=== PATIENT | female | born 1950 | race Caucasian/White ===

== ENCOUNTER → 2018-09-13 09:26 | Outpatient (REF) | payer MEDICARE, SELFPAY ==
[2018-09-13 10:04] LABS: Add Manual Diff / Slide Review NO; Basophils Percent Auto 0.6 % (0-2); Eosinophils Percent Auto 1.8 % (2-4); Hemoglobin 13.6 g/dL (12.0-16.0); Lymphocytes Percent Auto 24.7 % (25-40); Mean Corpuscular HGB Conc 33.2 % (30-36); Mean Corpuscular Hemoglobin 29.1 PG (26-34); Mean Corpuscular Volume 87.5 fL (80-100); Monocytes Percent Auto 6.4 % (3-14); Neutrophils Absolute Auto 5200 /uL (3000-5900); Neutrophils Percent Auto 66.5 % (50-75); Platelet Count 314 X10^3/uL (150-400); Red Blood Cell Count 4.69 X10^6/uL (4.0-5.2); Red Cell Distribution Width 13.4 % (11.6-14.8); White Blood Cell Count 7.8 X10^3/uL (4.5-11.0)
[2018-09-13 10:24] LABS: Alanine Aminotransferase 23 IU/L (9-52); Albumin Globulin Ratio 1.2 (1.0-2.8); Alkaline Phosphatase 76 U/L (38-126); Aspartate Aminotransferase 24 IU/L (14-36); Bilirubin Total 0.6 mg/dL (0.2-1.3); Blood Urea Nitrogen 12 mg/dL (7-17); Calcium 9.2 mg/dL (8.4-10.2); Carbon Dioxide 28 mmol/L (22-32); Chloride 105 mmol/L (98-107); Estimated Glomerular Filt Rate > 60.0 mL/min (>60); Globulin 3.4 g/dL (1.7-4.1); Glucose 95 mg/dL (80-110); HEMOLYSIS 18 (0-50); Potassium 3.9 mmol/L (3.4-5.1); Sodium 143 mmol/L (137-145); Total Protein 7.4 g/dL (6.3-8.2)
[2018-09-13 10:31] LABS: Cholesterol 189 mg/dL (140-199); HDL Cholesterol 49 mg/dL (40-60); LDL Cholesterol Calculated 114 mg/dL (<100); Triglycerides 131 mg/dL (35-150)
[2018-09-13 11:33] LABS: Thyroid Stimulating Hormone 6.74 uIU/mL (0.47-4.68)
== END ==
LOC: LAB 09:26
PROVIDERS: Visit Provider Family Medicine
DX: E03.9 Hypothyroidism, unspecified (principal); G30.0 Alzheimer's disease with early onset; F02.80 Dementia in other diseases classified elsewhere, unspecified severity, without behavioral disturbance, psychotic disturbance, mood disturbance, and anxiety
CPT/HCPCS: 36415; 80053; 80061; 84443; 85025

== ENCOUNTER → 2018-11-14 18:29 | Outpatient (CLI) | payer MEDICARE, SELFPAY ==
--- NOTE | 2018-11-14 | DI.RAD.S_ITS ---
PROCEDURE: XR KNEE LT 3V INDICATIONS: left knee pain TECHNIQUE: 3 views of the knee were acquired. COMPARISON: None. FINDINGS: Bones: No fractures or dislocations. No suspicious bony lesions. 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 No significant patellar subluxation. Soft tissues: No joint effusion. No suspicious soft tissue calcifications. IMPRESSION: Moderate tricomponent osteoarthritis. No acute fracture or dislocation. Dictated by: Maxi Jean M.D. on 11/14/2018 at 18:53 Approved by: Maxi Jean M.D. on 11/14/2018 at 18:54
== END ==
PROVIDERS: PCP Nurse Practitioner Family; Visit Provider Nurse Practitioner Family
DX: M25.562 Pain in left knee (principal); M17.12 Unilateral primary osteoarthritis, left knee
CPT/HCPCS: 73562

== ENCOUNTER 2018-11-15 08:45 | Inpatient (IN) | payer MEDICARE, SELFPAY ==
[2018-11-15] VITALS (7 sets, daily range): BP systolic 97–115; BP diastolic 41–80; PULSE 63–82; RESP 15–22; TEMP 36.6–38; O2SAT 94–99; BMI 25.0
--- NOTE | 2018-11-15 09:02 | ED.WEAKNESS ---
HPI - Weakness General Chief complaint: Extremity Injury, Lower Stated complaint: Near syncope Time Seen by Provider: 11/15/18 08:51 Source: EMS Mode of arrival: EMS Limitations: physical limitation (Non verbal) History of Present Illness HPI Narrative: Gillian is a 68-year-old female who presents after being found slumped over in a wheelchair. She resides at [facility] she is nonverbal at baseline. She had an outpatient x-ray of her left knee for swelling and warmth she was scheduled for blood work today. When EMS arrived she was easily woken she is now awake and responsive. She does follow some simple commands. But really does not talk. Her left knee is noted to be swollen and warm to touch but no erythema. She is afebrile. Related Data Home Medications Medication Instructions Recorded Confirmed cholecalciferol (vitamin D3) 2,000 unit PO DAILY 11/15/18 11/15/18 [Vitamin D3] levothyroxine 112 mcg PO DAILY 11/15/18 11/15/18 melatonin 6 mg PO BEDTIME 11/15/18 11/15/18 omega 5-yld-cie-fish oil [Fish Oil] 1,000 mg PO DAILY 11/15/18 11/15/18 vitamin B complex [B 1 tab PO DAILY 11/15/18 11/15/18 Complex-Vitamin B12] Previous Rx's Medication Instructions Recorded lorazepam 1 tab PO Q8HP PRN #60 tab 09/29/17 acetaminophen 325 mg tablet 650 mg PO Q4H PRN #90 tab 09/15/18 Allergies Allergy/AdvReac Type Severity Reaction Status Date / Time Penicillins [PENICILLINS] Allergy Severe hives, Unverified 03/10/18 12:01 vomiting Sulfa (Sulfonamide Allergy Severe hives Unverified 03/10/18 12:01 Antibiotics) [SULFA (SULFONAMIDE ANTIBIOTICS)] Review of Systems Review of Systems unobtainable due to mental condition Musculoskeletal Reports as per HPI PFSH Medical History Alzheimer disease (Chronic) Hypothyroid (Chronic) Surgical History Status post arthroscopy Social History lives independently: No ([facility]) Exam Initial Vital Signs Initial Vital Signs: Vital Signs Temperature 98 F 11/15/18 08:55 Pulse Rate 63 11/15/18 08:55 Respiratory Rate 18 11/15/18 08:55 Blood Pressure 104/55 L 11/15/18 08:55 Pulse Oximetry 99 12/17/18 08:55 Const General: cooperative and frail appearing Orientation: alert and awake HENPA Head: normal to inspection and normocephalic Eyes General: appearance normal, both eyes and all related structures Neck Neck: normal visual inspection and full ROM Chest Chest: normal inspection of the chest and normal palpation of entire chest wall Resp Auscultation: clear to auscultation bilaterally, no rales, no rhonchi and no wheezes Cardio Rate: regular rate Rhythm: regular rhythm Heart Sounds: S1 normal and S2 normal GI Inspection: non-distended Palpation: soft, No guarding and No tender Skin General: no rashes or lesions noted, No jaundice and No petechiae Neuro General: alert and awake Other: Can squeeze both hands does not move legs when asked Extrem Left lower extremity: knee Details: swelling (At knee unable to straighten held in slight flexion) and warmth (No erythema); no tenderness, no abrasions and no ecchymosis Course Orders Ordered: ED Orders 11/15/18 09:25 Basic Metabolic Panel Stat C-Reactive Protein Quant Stat Complete Blood Count AUTO DIFF Stat Erythrocyte Sedimentation Rate Stat Thyroid Stimulating Hormone Stat 11/15/18 09:39 XR chest 1V Stat Blood Culture Stat Procalcitonin Stat 11/15/18 10:25 Lactate (Lactic Acid) Stat 11/15/18 11:20 Urinalysis and Microscopic Stat Urine Culture Stat Haloperidol (Haldol) 2 mg IV NOW ONE Stop: 11/15/18 14:50 Sodium Chloride (Normal Saline 0.9%) 1,000 mls @ 150 mls/hr IV BOLUS ONE Stop: 11/15/18 16:19 Last Infusion: 11/15/18 12:32 Dose: 0 mls/hr Admin: 11/15/18 10:00 Dose: 150 mls/hr Discontinued Medications Ceftriaxone Sodium/Dextrose (Rocephin) 1 gm in 50 mls @ 100 mls/hr IV NOW ONE Stop: 11/15/18 12:35 Last Infusion: 11/15/18 12:49 Dose: 0 mls/hr Admin: 11/15/18 12:14 Dose: 100 mls/hr Sodium Chloride (Normal Saline 0.9%) 1,000 mls @ 1,000 mls/hr IV BOLUS ONE Stop: 11/15/18 14:45 Vital Signs - 8 hr 11/15/18 08:55 11/15/18 12:00 11/15/18 13:00 Temperature 98 F Pulse Rate 63 67 72 Respiratory Rate 18 15 16 Blood Pressure 104/55 L Blood Pressure [Left Arm] 97/56 L 115/64 Pulse Oximetry 99 95 95 11/15/18 13:15 Temperature 98.4 F Pulse Rate 71 Respiratory Rate 22 Blood Pressure 112/80 Blood Pressure [Left Arm] Pulse Oximetry 94 MDM - Weakness Lab Data Attestation: I reviewed the patient's lab results. Result diagrams: 11/15/18 09:25 11/15/18 09:25 Lab Results 11/15/18 11/15/18 11/15/18 Range/Units 09:25 09:25 09:25 WBC 17.6 H (4.5-11.0) X10^3/uL RBC 4.80 (4.0-5.2) X10^6/uL Hgb 13.9 (12.0-16.0) g/dL Hct 41.7 (36-46) % MCV 86.9 (80-100) fL MCH 29.0 (26-34) PG MCHC 33.4 (30-36) % RDW 13.2 (11.6-14.8) % Plt Count 312 (150-400) X10^3/uL Neut % (Auto) 87.1 H (50-75) % Lymph % (Auto) 4.6 L (25-40) % [place] % (Auto) 8.1 (3-14) % Eos % (Auto) 0.0 L (2-4) % Baso % (Auto) 0.2 (0-2) % Neut # (Auto) 84078 H (1783-7600) /uL ESR 43 H (0-20) MM/HR Sodium 139 (137-145) mmol/L Potassium 5.3 H (3.4-5.1) mmol/L Chloride 104 (98-107) mmol/L Carbon Dioxide 21 L (22-32) mmol/L BUN 12 (7-17) mg/dL Creatinine 0.40 L (0.52-1.04) mg/dL Estimated GFR > 60.0 (>60) mL/min BUN/Creatinine Ratio 30.0 H (6-22) Glucose 153 H (80-110) mg/dL Lactate (0.7-2.1) mmol/L Calcium 9.4 (8.4-10.2) mg/dL C-Reactive Protein 5.3 H (<1.0) mg/dL Procalcitonin (<0.5) ng/mL TSH 2.66 (0.47-4.68) uIU/mL Urine Color Urine Appearance Urine pH (4.5-8.0) Ur Specific [place] (1.000-1.035) Urine Protein (Negative) Urine Glucose (UA) (Normal) g/dL Urine Ketones (NEGATIVE) Urine Occult Blood (Negative) Urine Nitrate (Negative) Urine Bilirubin (NEGATIVE) Urine Urobilinogen (0.2) E.U./dL Ur Leukocyte Esterase (NEGATIVE) Urine RBC (0-5/HPF) Urine WBC (0-5/HPF) Urine Bacteria (None) Ur Culture Indicated? Micro UA Comment 11/15/18 11/15/18 11/15/18 Range/Units 09:39 10:25 11:20 WBC (4.5-11.0) X10^3/uL RBC (4.0-5.2) X10^6/uL Hgb (12.0-16.0) g/dL Hct (36-46) % MCV (80-100) fL MCH (26-34) PG MCHC (30-36) % RDW (11.6-14.8) % Plt Count (150-400) X10^3/uL Neut % (Auto) (50-75) % Lymph % (Auto) (25-40) % [place] % (Auto) (3-14) % Eos % (Auto) (2-4) % Baso % (Auto) (0-2) % Neut # (Auto) (4555-2863) /uL ESR (0-20) MM/HR Sodium (137-145) mmol/L Potassium (3.4-5.1) mmol/L Chloride (98-107) mmol/L Carbon Dioxide (22-32) mmol/L BUN (7-17) mg/dL Creatinine (0.52-1.04) mg/dL Estimated GFR (>60) mL/min BUN/Creatinine Ratio (6-22) Glucose (80-110) mg/dL Lactate 1.8 (0.7-2.1) mmol/L Calcium (8.4-10.2) mg/dL C-Reactive Protein (<1.0) mg/dL Procalcitonin 0.05 (<0.5) ng/mL TSH (0.47-4.68) uIU/mL Urine Color Yellow Urine Appearance Clear Urine pH 5.5 (4.5-8.0) Ur Specific [place] >=1.030 H (1.000-1.035) Urine Protein Negative (Negative) Urine Glucose (UA) Negative (Normal) g/dL Urine Ketones Negative (NEGATIVE) Urine Occult Blood 2+ H (Negative) Urine Nitrate Positive H (Negative) Urine Bilirubin Negative (NEGATIVE) Urine Urobilinogen 0.2 (0.2) E.U./dL Ur Leukocyte Esterase Trace H (NEGATIVE) Urine RBC 1-5/hpf (0-5/HPF) Urine WBC 5-10/hpf H (0-5/HPF) Urine Bacteria Many (>30) H (None) Ur Culture Indicated? Specimen cultured Micro UA Comment Not Reportable Imaging Data Left knee x-ray: Radiologist's impression: Patient: Gillian Law MR#: [id number] : 1950 Acct:[id number] Age/Sex: 68 / F Date of Service: 11/14/18 Loc: Accession Number: [id number] Procedure: XR knee LT 3V Ordering Provider: Shelia Petersen PROCEDURE: XR KNEE LT 3V INDICATIONS: left knee pain TECHNIQUE: 3 views of the knee were acquired. COMPARISON: None. FINDINGS: Bones: No fractures or dislocations. No suspicious bony lesions. 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 No significant patellar subluxation. Soft tissues: No joint effusion. No suspicious soft tissue calcifications. IMPRESSION: Moderate tricomponent osteoarthritis. No acute fracture or dislocation. Dictated by: Maxi Jean M.D. on 11/14/2018 at 18:53 Chest x-ray: Radiologist's impression: PROCEDURE: XR CHEST 1V INDICATIONS: confusion high wbc TECHNIQUE: One view of the chest was acquired. COMPARISON: None. FINDINGS: Surgical changes and devices: None. Lungs and pleura: No pleural effusions or pneumothorax. Lungs are clear. Mediastinum: Mediastinal contours appear normal. Heart size is normal. Bones and chest wall: No suspicious bony lesions. Overlying soft tissues appear unremarkable. IMPRESSION: No acute process. Dictated by: Baudilio Porras M.D. on 11/15/2018 at 9:59 MDM Narrative Medical decision making narrative: Patient actually starts moving her legs. Her knee is not erythematous it is mildly edematous. I do not think I can get fluid off with an arthrocentesis. I do not suspect septic joint. Urine is positive for nitrates and leukocytes. She is incontinent of urine her urine smells. I suspect her leukocytosis decreased mental status is more from UTI. She is empirically given 1 dose of Rocephin. The not tachycardic or hypotensive she did receive 1 L of IV fluids. Dr. Turner has been updated on patient's symptoms test results agrees with admission. Discharge Plan Departure Patient Disposition: Admitted As Inpatient Clinical Impression: UTI (urinary tract infection) Discharge Date/Time: 11/15/18 13:14 Interventions: ED Discharge Assessment Last Done: 11/15/18 13:00 Admit Date/Time: 11/15/18 12:24 Admit Provider: Angie Turner
--- NOTE | 2018-11-15 09:07 | ED_ITS ---
HPI - Weakness General Chief complaint: Extremity Injury, Lower Stated complaint: Near syncope Time Seen by Provider: 11/15/18 08:51 Source: EMS Mode of arrival: EMS Limitations: physical limitation (Non verbal) History of Present Illness HPI Narrative: Gillian is a 68-year-old female who presents after being found slumped over in a wheelchair. She resides at [facility] she is nonverbal at baseline. She had an outpatient x-ray of her left knee for swelling and warmth she was scheduled for blood work today. When EMS arrived she was easily woken she is now awake and responsive. She does follow some simple commands. But really does not talk. Her left knee is noted to be swollen and warm to touch but no erythema. She is afebrile. Related Data Home Medications Medication Instructions Recorded Confirmed cholecalciferol (vitamin D3) 2,000 unit PO DAILY 11/15/18 11/15/18 [Vitamin D3] levothyroxine 112 mcg PO DAILY 11/15/18 11/15/18 melatonin 6 mg PO BEDTIME 11/15/18 11/15/18 omega 4-uhz-slc-fish oil [Fish Oil] 1,000 mg PO DAILY 11/15/18 11/15/18 vitamin B complex [B 1 tab PO DAILY 11/15/18 11/15/18 Complex-Vitamin B12] Previous Rx's Medication Instructions Recorded lorazepam 1 tab PO Q8HP PRN #60 tab 09/29/17 acetaminophen 325 mg tablet 650 mg PO Q4H PRN #90 tab 09/15/18 Allergies Allergy/AdvReac Type Severity Reaction Status Date / Time Penicillins [PENICILLINS] Allergy Severe hives, Unverified 03/10/18 12:01 vomiting Sulfa (Sulfonamide Allergy Severe hives Unverified 03/10/18 12:01 Antibiotics) [SULFA (SULFONAMIDE ANTIBIOTICS)] Review of Systems Review of Systems unobtainable due to mental condition Musculoskeletal Reports as per HPI PFSH Medical History Alzheimer disease (Chronic) Hypothyroid (Chronic) Surgical History Status post arthroscopy Social History lives independently: No ([facility]) Exam Initial Vital Signs Initial Vital Signs: Vital Signs Temperature 98 F 11/15/18 08:55 Pulse Rate 63 11/15/18 08:55 Respiratory Rate 18 11/15/18 08:55 Blood Pressure 104/55 L 11/15/18 08:55 Pulse Oximetry 99 12/17/18 08:55 Const General: cooperative and frail appearing Orientation: alert and awake HENNV Head: normal to inspection and normocephalic Eyes General: appearance normal, both eyes and all related structures Neck Neck: normal visual inspection and full ROM Chest Chest: normal inspection of the chest and normal palpation of entire chest wall Resp Auscultation: clear to auscultation bilaterally, no rales, no rhonchi and no wheezes Cardio Rate: regular rate Rhythm: regular rhythm Heart Sounds: S1 normal and S2 normal GI Inspection: non-distended Palpation: soft, No guarding and No tender Skin General: no rashes or lesions noted, No jaundice and No petechiae Neuro General: alert and awake Other: Can squeeze both hands does not move legs when asked Extrem Left lower extremity: knee Details: swelling (At knee unable to straighten held in slight flexion) and warmth (No erythema); no tenderness, no abrasions and no ecchymosis Course Orders Ordered: ED Orders 11/15/18 09:25 Basic Metabolic Panel Stat C-Reactive Protein Quant Stat Complete Blood Count AUTO DIFF Stat Erythrocyte Sedimentation Rate Stat Thyroid Stimulating Hormone Stat 11/15/18 09:39 XR chest 1V Stat Blood Culture Stat Procalcitonin Stat 11/15/18 10:25 Lactate (Lactic Acid) Stat 11/15/18 11:20 Urinalysis and Microscopic Stat Urine Culture Stat Haloperidol (Haldol) 2 mg IV NOW ONE Stop: 11/15/18 14:50 Sodium Chloride (Normal Saline 0.9%) 1,000 mls @ 150 mls/hr IV BOLUS ONE Stop: 11/15/18 16:19 Last Infusion: 11/15/18 12:32 Dose: 0 mls/hr Admin: 11/15/18 10:00 Dose: 150 mls/hr Discontinued Medications Ceftriaxone Sodium/Dextrose (Rocephin) 1 gm in 50 mls @ 100 mls/hr IV NOW ONE Stop: 11/15/18 12:35 Last Infusion: 11/15/18 12:49 Dose: 0 mls/hr Admin: 11/15/18 12:14 Dose: 100 mls/hr Sodium Chloride (Normal Saline 0.9%) 1,000 mls @ 1,000 mls/hr IV BOLUS ONE Stop: 11/15/18 14:45 Vital Signs - 8 hr 11/15/18 08:55 11/15/18 12:00 11/15/18 13:00 Temperature 98 F Pulse Rate 63 67 72 Respiratory Rate 18 15 16 Blood Pressure 104/55 L Blood Pressure [Left Arm] 97/56 L 115/64 Pulse Oximetry 99 95 95 11/15/18 13:15 Temperature 98.4 F Pulse Rate 71 Respiratory Rate 22 Blood Pressure 112/80 Blood Pressure [Left Arm] Pulse Oximetry 94 MDM - Weakness Lab Data Attestation: I reviewed the patient's lab results. Result diagrams: 11/15/18 09:25 11/15/18 09:25 Lab Results 11/15/18 11/15/18 11/15/18 Range/Units 09:25 09:25 09:25 WBC 17.6 H (4.5-11.0) X10^3/uL RBC 4.80 (4.0-5.2) X10^6/uL Hgb 13.9 (12.0-16.0) g/dL Hct 41.7 (36-46) % MCV 86.9 (80-100) fL MCH 29.0 (26-34) PG MCHC 33.4 (30-36) % RDW 13.2 (11.6-14.8) % Plt Count 312 (150-400) X10^3/uL Neut % (Auto) 87.1 H (50-75) % Lymph % (Auto) 4.6 L (25-40) % [place] % (Auto) 8.1 (3-14) % Eos % (Auto) 0.0 L (2-4) % Baso % (Auto) 0.2 (0-2) % Neut # (Auto) 70946 H (9351-7746) /uL ESR 43 H (0-20) MM/HR Sodium 139 (137-145) mmol/L Potassium 5.3 H (3.4-5.1) mmol/L Chloride 104 (98-107) mmol/L Carbon Dioxide 21 L (22-32) mmol/L BUN 12 (7-17) mg/dL Creatinine 0.40 L (0.52-1.04) mg/dL Estimated GFR > 60.0 (>60) mL/min BUN/Creatinine Ratio 30.0 H (6-22) Glucose 153 H (80-110) mg/dL Lactate (0.7-2.1) mmol/L Calcium 9.4 (8.4-10.2) mg/dL C-Reactive Protein 5.3 H (<1.0) mg/dL Procalcitonin (<0.5) ng/mL TSH 2.66 (0.47-4.68) uIU/mL Urine Color Urine Appearance Urine pH (4.5-8.0) Ur Specific [place] (1.000-1.035) Urine Protein (Negative) Urine Glucose (UA) (Normal) g/dL Urine Ketones (NEGATIVE) Urine Occult Blood (Negative) Urine Nitrate (Negative) Urine Bilirubin (NEGATIVE) Urine Urobilinogen (0.2) E.U./dL Ur Leukocyte Esterase (NEGATIVE) Urine RBC (0-5/HPF) Urine WBC (0-5/HPF) Urine Bacteria (None) Ur Culture Indicated? Micro UA Comment 11/15/18 11/15/18 11/15/18 Range/Units 09:39 10:25 11:20 WBC (4.5-11.0) X10^3/uL RBC (4.0-5.2) X10^6/uL Hgb (12.0-16.0) g/dL Hct (36-46) % MCV (80-100) fL MCH (26-34) PG MCHC (30-36) % RDW (11.6-14.8) % Plt Count (150-400) X10^3/uL Neut % (Auto) (50-75) % Lymph % (Auto) (25-40) % [place] % (Auto) (3-14) % Eos % (Auto) (2-4) % Baso % (Auto) (0-2) % Neut # (Auto) (1612-7074) /uL ESR (0-20) MM/HR Sodium (137-145) mmol/L Potassium (3.4-5.1) mmol/L Chloride (98-107) mmol/L Carbon Dioxide (22-32) mmol/L BUN (7-17) mg/dL Creatinine (0.52-1.04) mg/dL Estimated GFR (>60) mL/min BUN/Creatinine Ratio (6-22) Glucose (80-110) mg/dL Lactate 1.8 (0.7-2.1) mmol/L Calcium (8.4-10.2) mg/dL C-Reactive Protein (<1.0) mg/dL Procalcitonin 0.05 (<0.5) ng/mL TSH (0.47-4.68) uIU/mL Urine Color Yellow Urine Appearance Clear Urine pH 5.5 (4.5-8.0) Ur Specific [place] >=1.030 H (1.000-1.035) Urine Protein Negative (Negative) Urine Glucose (UA) Negative (Normal) g/dL Urine Ketones Negative (NEGATIVE) Urine Occult Blood 2+ H (Negative) Urine Nitrate Positive H (Negative) Urine Bilirubin Negative (NEGATIVE) Urine Urobilinogen 0.2 (0.2) E.U./dL Ur Leukocyte Esterase Trace H (NEGATIVE) Urine RBC 1-5/hpf (0-5/HPF) Urine WBC 5-10/hpf H (0-5/HPF) Urine Bacteria Many (>30) H (None) Ur Culture Indicated? Specimen cultured Micro UA Comment Not Reportable Imaging Data Left knee x-ray: Radiologist's impression: Patient: Gillian Law MR#: [id number] : 1950 Acct:[id number] Age/Sex: 68 / F Date of Service: 11/14/18 Loc: Accession Number: [id number] Procedure: XR knee LT 3V Ordering Provider: Shelia Petersen PROCEDURE: XR KNEE LT 3V INDICATIONS: left knee pain TECHNIQUE: 3 views of the knee were acquired. COMPARISON: None. FINDINGS: Bones: No fractures or dislocations. No suspicious bony lesions. 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 No significant patellar subluxation. Soft tissues: No joint effusion. No suspicious soft tissue calcifications. IMPRESSION: Moderate tricomponent osteoarthritis. No acute fracture or dislocation. Dictated by: Maxi Jean M.D. on 11/14/2018 at 18:53 Chest x-ray: Radiologist's impression: PROCEDURE: XR CHEST 1V INDICATIONS: confusion high wbc TECHNIQUE: One view of the chest was acquired. COMPARISON: None. FINDINGS: Surgical changes and devices: None. Lungs and pleura: No pleural effusions or pneumothorax. Lungs are clear. Mediastinum: Mediastinal contours appear normal. Heart size is normal. Bones and chest wall: No suspicious bony lesions. Overlying soft tissues appear unremarkable. IMPRESSION: No acute process. Dictated by: Baudilio Porras M.D. on 11/15/2018 at 9:59 MDM Narrative Medical decision making narrative: Patient actually starts moving her legs. Her knee is not erythematous it is mildly edematous. I do not think I can get fluid off with an arthrocentesis. I do not suspect septic joint. Urine is positive for nitrates and leukocytes. She is incontinent of urine her urine smells. I suspect her leukocytosis decreased mental status is more from UTI. She is empirically given 1 dose of Rocephin. The not tachycardic or hypotensive she did receive 1 L of IV fluids. Dr. Turner has been updated on patient's symptoms test results agrees with admission. Discharge Plan Departure Patient Disposition: Admitted As Inpatient Clinical Impression: UTI (urinary tract infection) Discharge Date/Time: 11/15/18 13:14 Interventions: ED Discharge Assessment Last Done: 11/15/18 13:00 Admit Date/Time: 11/15/18 12:24 Admit Provider: Angie Turner
[2018-11-15 09:36] LABS: Add Manual Diff / Slide Review NO; Basophils Percent Auto 0.2 % (0-2); Hematocrit 41.7 % (36-46); Hemoglobin 13.9 g/dL (12.0-16.0); Lymphocytes Percent Auto 4.6 % (25-40); Mean Corpuscular HGB Conc 33.4 % (30-36); Mean Corpuscular Volume 86.9 fL (80-100); Monocytes Percent Auto 8.1 % (3-14); Neutrophils Absolute Auto 15300 /uL (1500-7000); Neutrophils Percent Auto 87.1 % (50-75); Platelet Count 312 X10^3/uL (150-400); Red Cell Distribution Width 13.2 % (11.6-14.8); White Blood Cell Count 17.6 X10^3/uL (4.5-11.0)
--- NOTE | 2018-11-15 09:39 | DI.RAD.S_ITS ---
PROCEDURE: XR CHEST 1V INDICATIONS: confusion high wbc TECHNIQUE: One view of the chest was acquired. COMPARISON: None. FINDINGS: Surgical changes and devices: None. Lungs and pleura: No pleural effusions or pneumothorax. Lungs are clear. Mediastinum: Mediastinal contours appear normal. Heart size is normal. Bones and chest wall: No suspicious bony lesions. Overlying soft tissues appear unremarkable. IMPRESSION: No acute process. Dictated by: Baudilio Porras M.D. on 11/15/2018 at 9:59 Approved by: Baudilio Porras M.D. on 11/15/2018 at 9:59
[2018-11-15 09:44] LABS: Blood Urea Nitrogen 12 mg/dL (7-17); Calcium 9.4 mg/dL (8.4-10.2); Carbon Dioxide 21 mmol/L (22-32); Chloride 104 mmol/L (98-107); Estimated Glomerular Filt Rate > 60.0 mL/min (>60); Glucose 153 mg/dL (80-110); Potassium 5.3 mmol/L (3.4-5.1); Sodium 139 mmol/L (137-145)
[2018-11-15 09:48] LABS: HEMOLYSIS 202 (0-50)
[2018-11-15] MEDS: SODIUM CHLORIDE 0.9% 1,000 ML 150 ML IV (10:00)
[2018-11-15 10:31] LABS: Thyroid Stimulating Hormone 2.66 uIU/mL (0.47-4.68)
[2018-11-15 10:48] LABS: C-Reactive Protein Quant 5.3 mg/dL (<1.0)
[2018-11-15 10:56] LABS: Lactate (Lactic Acid) 1.8 mmol/L (0.7-2.1)
[2018-11-15 11:07] LABS: Erythrocyte Sedimentation Rate 43 MM/HR (0-20)
[2018-11-15 11:16] LABS: Procalcitonin 0.05 ng/mL (<0.5)
--- NOTE | 2018-11-15 11:51 | PC.NURSE ---
patient was brought in by EMS from [facility]. left knee is hot to touch and swollen. provider aware and no new orders at this time.
[2018-11-15 11:56] LABS: Appearance Urine UA CLEAR; Bilirubin Urine UA NEGATIVE (NEGATIVE); Color Urine UA YELLOW; Glucose Urine UA NEGATIVE (Normal); Ketones Urine UA NEGATIVE (NEGATIVE); Leukocyte Esterase Urine UA TRACE (NEGATIVE); Nitrite Urine UA POSITIVE (Negative); Occult Blood Urine UA 2+ (Negative); Protein Urine UA NEGATIVE (Negative); Specific Gravity Urine UA >=1.030 (1.000-1.035); Urobilinogen Urine UA 0.2 E.U./dL (0.2); pH Urine UA 5.5 (4.5-8.0)
[2018-11-15 12:05] LABS: RBC Urine 1-5/HPF (0-5/HPF); WBC Urine 5-10/HPF (0-5/HPF)
[2018-11-15 12:06] LABS: Bacteria Urine Many (>30); Culture Indicated Urine Specimen Cultured
[2018-11-15] MEDS: CEFTRIAXONE 1 GM/50 ML FROZ.PIGGY IV (12:14)
[2018-11-15] MEDS: SODIUM CHLORIDE 0.9% 1,000 ML 1000 ML IV (13:00)
--- NOTE | 2018-11-15 13:12 | PC.NURSE ---
patient is non verbal and was a little combative when trying to straight cath but urine obtained. provider aware and no new orders at this time.
--- NOTE | 2018-11-15 13:30 | PC.ADMIT ---
Addendum entered by Savage Berrios R.N. 11/15/18 15:29: Spoke with MD regarding inability to obtain second set of blood cultures r/t pt combative with lab draw attempts. VORB for haldol IV and then attempt to get blood cultures. Awaiting med from pharmacy. Bedside report given. [facility] The patient,Gillian Law,68 y/o, was given written information regarding hospital policies, unit procedures and contact persons. Patient's smoking status: . Vital Signs - 8 hr 11/15/18 08:55 11/15/18 12:00 11/15/18 13:00 Temperature 98 F Pulse Rate 63 67 72 Respiratory Rate 18 15 16 Blood Pressure 104/55 L Blood Pressure [Left Arm] 97/56 L 115/64 Pulse Oximetry 99 95 95 Rec'd pt from ED via stretcher at 1315. Pt is awake and alert. Nonverbal with a few incomprehensible sounds. Pt is nervous and tremors to BUE noted that calm with careful explanation of care. NS bolus is infusing at this time. VSS. Afebrile. Bed alarm in use. Call light in reach. Curtains open for direct visualization.
[2018-11-15] MEDS: HALOPERIDOL 5 MG/ML VIAL 2 MG IV (15:38)
--- NOTE | 2018-11-15 16:01 | P.HP_ITS ---
History of Present Illness Date Patient Seen: 11/15/18 Chief complaint: Near syncope Narrative: The patient is a 68y/o female with a history of dementia who by report is non verbal at baseline. She was evaluated in the Emergency Department a few days ago for left knee pain. Xrays of the knee were negative. The patient was found slumped over today by medics. She was easily arousable and brought into the emergency department for evaluation. As the patient is non verbal she is unable to give any history. She was combative and recieved haldol and is not uncooperative with exam. After evaluation in the ED she was found to have an elevated WBC, positive urine, and admitted for furthe evaluation. Patient History Medical History Alzheimer disease (Chronic) Hypothyroid (Chronic) Surgical History Status post arthroscopy Family & Social History Social History: lives independently No: Lyssa Meds Home Medications Medication Instructions Recorded Confirmed Type lorazepam 1 tab PO Q8HP PRN #60 tab 09/29/17 11/15/18 Rx acetaminophen 325 mg tablet 650 mg PO Q4H PRN #90 tab 09/15/18 11/15/18 Rx cholecalciferol (vitamin D3) 2,000 unit PO DAILY 11/15/18 11/15/18 History [Vitamin D3] levothyroxine 112 mcg PO DAILY 11/15/18 11/15/18 History melatonin 6 mg PO BEDTIME 11/15/18 11/15/18 History omega [id number] oil [Fish Oil] 1,000 mg PO DAILY 11/15/18 11/15/18 History vitamin B complex [B 1 tab PO DAILY 11/15/18 11/15/18 History Complex-Vitamin B12] Allergies Allergy/AdvReac Type Severity Reaction Status Date / Time Penicillins [PENICILLINS] Allergy Severe hives, Unverified 03/10/18 12:01 vomiting Sulfa (Sulfonamide Allergy Severe hives Unverified 03/10/18 12:01 Antibiotics) [SULFA (SULFONAMIDE ANTIBIOTICS)] Review of Systems Review of Systems Unable to obtain as the patient is non verbal Exam Vital Signs (past 8 hours): - 11/15/18 08:55 11/15/18 12:00 11/15/18 13:00 Temperature 98 F Pulse Rate 63 67 72 Respiratory Rate 18 15 16 Blood Pressure 104/55 L Blood Pressure [Left Arm] 97/56 L 115/64 Pulse Oximetry 99 95 95 11/15/18 13:15 Temperature 98.4 F Pulse Rate 71 Respiratory Rate 22 Blood Pressure 112/80 Blood Pressure [Left Arm] Pulse Oximetry 94 Oxygen Delivery Method Room Air Narrative Exam Narrative: Ill appearing dishelved female non verbal and non cooperative HEENT: NC/AT, oropharynx dry mucus membranes Lungs: clear to auscultation, but decreased breath sounds CV: RRR nl Sl S2 Abd: soft/ non tender/ non distended Ext: no edema Skin: warm no lesions, diaper in place Neuro: patient is uncooperative Objective Labs Result Diagrams: 11/15/18 09:25 11/15/18 09:25 Labs: Laboratory Results - last 24 hr 11/15/18 11/15/18 11/15/18 09:25 09:25 09:25 WBC 17.6 H RBC 4.80 Hgb 13.9 Hct 41.7 MCV 86.9 MCH 29.0 MCHC 33.4 RDW 13.2 Plt Count 312 Neut % (Auto) 87.1 H Lymph % (Auto) 4.6 L [place] % (Auto) 8.1 Eos % (Auto) 0.0 L Baso % (Auto) 0.2 Neut # (Auto) 42397 H ESR 43 H Sodium 139 Potassium 5.3 H Chloride 104 Carbon Dioxide 21 L BUN 12 Creatinine 0.40 L Estimated GFR > 60.0 BUN/Creatinine Ratio 30.0 H Glucose 153 H Lactate Calcium 9.4 C-Reactive Protein 5.3 H Procalcitonin TSH 2.66 Urine Color Urine Appearance Urine pH Ur Specific [place] Urine Protein Urine Glucose (UA) Urine Ketones Urine Occult Blood Urine Nitrate Urine Bilirubin Urine Urobilinogen Ur Leukocyte Esterase Urine RBC Urine WBC Urine Bacteria Ur Culture Indicated? Micro UA Comment 11/15/18 11/15/18 11/15/18 09:39 10:25 11:20 WBC RBC Hgb Hct MCV MCH MCHC RDW Plt Count Neut % (Auto) Lymph % (Auto) [place] % (Auto) Eos % (Auto) Baso % (Auto) Neut # (Auto) ESR Sodium Potassium Chloride Carbon Dioxide BUN Creatinine Estimated GFR BUN/Creatinine Ratio Glucose Lactate 1.8 Calcium C-Reactive Protein Procalcitonin 0.05 TSH Urine Color Yellow Urine Appearance Clear Urine pH 5.5 Ur Specific [place] >=1.030 H Urine Protein Negative Urine Glucose (UA) Negative Urine Ketones Negative Urine Occult Blood 2+ H Urine Nitrate Positive H Urine Bilirubin Negative Urine Urobilinogen 0.2 Ur Leukocyte Esterase Trace H Urine RBC 1-5/hpf Urine WBC 5-10/hpf H Urine Bacteria Many (>30) H Ur Culture Indicated? Specimen cultured Micro UA Comment Not Reportable Assessment & Plan (1) Sepsis: Problem details: Continue IV hydration and antibiotics Current visit: Yes Status: Acute (2) UTI (urinary tract infection): Problem details: Await cultures, continue ceftriaxone for now Qualifiers: Encounter type: Hematuria presence: with hematuria Indwelling urinary catheter type: Urinary tract infection type: acute cystitis Qualified Code(s): N30.01 - Acute cystitis with hematuria Current visit: Yes Status: Acute (3) Hypothyroidism: Problem details: Resume thyroid medication when taking adequate PO Current visit: No Status: None (4) 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
[2018-11-15] MEDS: DEXTROSE 5%-0.45% NS 1,000 ML 100 ML IV (16:43)
[2018-11-15] MEDS: HYDROMORPHONE 0.5 MG INJ IV (17:10)
[2018-11-15] MEDS: SENNOSIDES 8.6 MG TABLET 17.2 MG PO (17:30)
[2018-11-15] MEDS: ACETAMINOPHEN 325 MG TABLET 650 MG PO (17:30)
[2018-11-15] MEDS: DOCUSATE 100 MG CAPSULE PO (17:30)
[2018-11-15 17:48] LABS: Add Manual Diff / Slide Review NO; Basophils Percent Auto 0.4 % (0-2); Hematocrit 37.6 % (36-46); Hemoglobin 12.3 g/dL (12.0-16.0); Lymphocytes Percent Auto 8.1 % (25-40); Mean Corpuscular HGB Conc 32.8 % (30-36); Mean Corpuscular Hemoglobin 28.7 PG (26-34); Mean Corpuscular Volume 87.3 fL (80-100); Monocytes Percent Auto 10.4 % (3-14); Neutrophils Absolute Auto 12000 /uL (1500-7000); Neutrophils Percent Auto 81.1 % (50-75); Platelet Count 273 X10^3/uL (150-400); Red Blood Cell Count 4.31 X10^6/uL (4.0-5.2); Red Cell Distribution Width 13.2 % (11.6-14.8); White Blood Cell Count 14.8 X10^3/uL (4.5-11.0)
[2018-11-15 17:51] LABS: Blood Urea Nitrogen 9 mg/dL (7-17); Calcium 8.7 mg/dL (8.4-10.2); Carbon Dioxide 23 mmol/L (22-32); Chloride 109 mmol/L (98-107); Estimated Glomerular Filt Rate > 60.0 mL/min (>60); Glucose 132 mg/dL (80-110); HEMOLYSIS < 15 (0-50); Potassium 3.5 mmol/L (3.4-5.1); Sodium 141 mmol/L (137-145)
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
[2018-11-16] VITALS (11 sets, daily range): BP systolic 91–129; BP diastolic 48–95; PULSE 63–91; RESP 14–19; TEMP 36.4–38.1; O2SAT 94–97
--- NOTE | 2018-11-16 | DI.RAD.S_ITS ---
PROCEDURE: XR HIP W PEL IF DONE LT 2V INDICATIONS: left hip pain TECHNIQUE: 2 views of the hip were acquired. COMPARISON: None. FINDINGS: Bones: No fractures or dislocations. No suspicious bony lesions. The visualized pelvic ring appears intact. Bilateral mild to joint degeneration. Small chronic bilateral os acetabula. Diffuse discogenic changes seen in the visualized lower lumbar spine. Soft tissues: No suspicious soft tissue calcifications or masses. IMPRESSION: Mild bilateral hip joint degeneration. Lower lumbar degenerative disc disease. Dictated by: Savage Yusfu M.D. on 11/16/2018 at 12:31 Approved by: Savage Yusuf M.D. on 11/16/2018 at 12:32
[2018-11-16] MEDS: HALOPERIDOL 5 MG/ML VIAL 2 MG IV (00:31)
[2018-11-16] MEDS: DEXTROSE 5%-0.45% NS 1,000 ML 100 ML IV (00:33)
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
[2018-11-16] MEDS: DOCUSATE 100 MG CAPSULE PO ×2 (09:28→19:08)
[2018-11-16] MEDS: ENOXAPARIN 40 MG/0.4 ML SYRINGE SUBCUT (09:28)
--- NOTE | 2018-11-16 09:51 | PT.IIE ---
Current Diagnoses Sepsis, unspecified organism (11/15/18) Hypothyroidism, unspecified (11/15/18) Dementia in other diseases classified elsewhere with behavioral disturbance (11/15/18) Alzheimer's disease with early onset (11/15/18) Encephalopathy, unspecified (11/15/18) Pain in left hip (11/15/18) Acute cystitis with hematuria (11/15/18) Surgical History (Last Reviewed 11/15/18 @ 15:59 by Angie Turner MD) Status post arthroscopy Medical History (Last Updated 11/15/18 @ 16:41 by Marilu Sandhu RN) TBI (traumatic brain injury) (Acute) Alzheimer disease (Chronic) Hypothyroid (Chronic) Physical Therapy Inpatient Evaluation/Re-Eval M1 PT/OT-IP Prior Functional Status Start: 11/16/18 13:14 Freq: NEEDED Status: Active Protocol: Document 11/16/18 09:51 AB (Rec: 11/16/18 13:39 AB [id number]) Medical Review Prior Functional Status Medical History Reviewed Yes Communication pt has dysphasia Mobility and Gait per [facility]: pt is independent with ambulation without AD but requires assistance with ADLs due to decrease cognition Activities of Daily Living and IADL's requires assistance Social History Household Members caregiver Living Arrangements Assisted Living Home Environment High Toilet Walk in Shower Home Equipment Grab Bars Near Toilet Grab Bars In Shower M2 PT-IP Current Condition Start: 11/16/18 13:14 Freq: NEEDED Status: Active Protocol: Document 11/16/18 09:51 AB (Rec: 11/16/18 13:39 AB [id number]) Physical Therapy Current Condition Current Condition Evaluation Date 11/16/18 Treatment Diagnosis UTI; difficulty in walking Onset Date 11/15/18 Precautions Other Precautions falls M3 PT-IP Subjective Start: 11/16/18 13:14 Freq: NEEDED Status: Active Protocol: Document 11/16/18 09:51 AB (Rec: 11/16/18 13:39 AB [id number]) Subjective Physical Therapy Visit Type Type Initial Evaluation Visit Start Time 09:51 Visit Stop Time 10:40 Total Visit Minutes 49 Number of BAR POINTER Visits 0 Therapy Pain Assessment Pain When Pain Assessed During Mobility Location Left Leg Scale Used unable to stated pain scale Description With Movement Pain Behaviors Facial Grimacing Holding Area Wincing M4 PT-IP Mobility and Gait Start: 11/16/18 13:14 Freq: NEEDED Status: Active Protocol: Document 11/16/18 09:51 AB (Rec: 11/16/18 13:39 AB [id number]) PT-Bed Mobility Assessment Supine to Sit Supine to Sit Moderate Assistance 1 Person Assistance Head of Bed Elevated Bedrails PT-Transfer Assessment Sit to and From Stand Sit to and from Stand Maximum Assistance 2 Person Assistance Use of Upper Extremities Equipment Transfer Assistive Device Gait Belt Front Wheeled Walker Orthotic/Prosthetic Devices or Brace: No Transfers Transfer Destination Chair Transfer Technique Stand Step Pivot Transfer Ability Level of Assist Maximum Assistance 2 Person Assistance Use of Upper Extremities Comments Mobility Comments pt required max A cues with all tasks and requires constant cues and redirection. also requires increaes time to complete tasks. pt with difficulty with weight shifting on LE during transfers and requires assistance to be able to move LE. pt used FWW during transfers. Gait Assessment Gait Gait Assistance Required: Maximum Assistance 2 Person Assist Able to Maintain Weight Bearing Status Yes During Gait Assistive Devices Assistive Device Gait Belt Front Wheeled Walker Gait Deviations General Gait Pattern Decreased Stride Length Decreased Feet Clearance Factors Limiting Gait Function Factors Limiting Gait Function Decreased Activity Tolerance Decreased Strength Difficulty Following Directions Incoordination Limited Range of Motion Pain Poor Balance Poor Safety Awareness Comments Gait Comments able to take ~ 3 steps during transfers using FWW max A x 2 and max cues. PT-Balance Assessment Sitting Balance and Reactions Static Sitting Balance Ability Good Dynamic Sitting Balance Ability Fair Standing Balance and Reactions Static Standing Balance Ability Poor Dynamic Standing Balance Ability Poor Device Used FWW M5 PT-IP Objective Assessments Start: 11/16/18 13:14 Freq: NEEDED Status: Active Protocol: Document 11/16/18 09:51 AB (Rec: 11/16/18 13:39 AB [id number]) Orientation Orientation/Cognition Level of Alertness Alert Language Function Ability Garbled Speech Safety Awareness Decreased Safety Awareness Gross Range of Motion Lower Extremity ROM Assessment Within Functional Limits Strength Lower Extremity Strength Assessment Left Impaired Comments Strength Comments unable to complete MMT but pt has difficulty moving RLE and requiring assistance during bed mobility to move to EOB M7 PT-IP Assessment and Plan Start: 11/16/18 13:14 Freq: NEEDED Status: Active Protocol: Document 11/16/18 09:51 AB (Rec: 11/16/18 13:39 AB [id number]) PT Summary Assessment and Plan Potential Rehabilitation Potential Fair Status of Condition at Evaluation Evolving Summary Impairments Pain ROM Strength Balance Coordination Sensation Tone Cognition Bed Mobility Transfers Gait Activity Tolerance Assessment Summary pt requiring 2 person assist with mobility and requires max cues with all tasks. pt with significant decrease in functional mobility compared to PLOF and will benefit from SNF rehab to improve strength and get back to PLOF. Goals Bed Mobility Goal Standby Assistance Transfer Goal Standby Assistance Front Wheeled Walker Gait Goal Standby Assistance Front Wheel Walker Gait Distance 100 Other Goals Short term goals: improve bed mobility, transfers to SBA custodial goal: improve ambulation using least restrictive device/without AD CGA ~ 100 ft Days to Meet Goals 5 Frequency of Treatment Frequency Of Treatment Once a Day Treatment Plan Physical Therapy Treatment Plan Bed Mobility Training Transfer Training Gait Training Therapeutic Exercise Balance Retraining Discharge Planning Neuromuscular Re-ed Coordination Retraining Manual Therapy Other Recommendations and Next Treatment ambulation Focus Recommendations To Nursing Amount of Assist Needed 2 Person Assist Discharge Recommendations PT Discharge Recommendations SNF Rehab
--- NOTE | 2018-11-16 10:57 | CM.DPC ---
DCP Cont: Met with patient's daughter, Betsy. Stated that she has financial power of deputy commonwealth's attorney, but not medical. Gave her information on filling out POA. Also, discussed her going to [facility]. Daughter stated that facility, [facility], may not take patient back right away, for she is not weight bearing at this time. Gave her a Medicare choice list. She will be looking at facilities in [facility]. Patient would have to be here for 3 midnights to qualify, and daughter is aware of this. This will also depend upon if patient can be changed to inpatient status. Checked in with Kike, who stated that inpatient status can be changed tomorrow. P: DCP to continue to follow. Plan is back to [facility] versus skilled, and this will also depend upon if this changes to inpatient status. Flor Priest RN/Fire Information Officer
--- NOTE | 2018-11-16 11:10 | PM.PN.1 ---
Subjective Date Patient Seen: 11/16/18 Interval history: The patient is alert and awake today. She does have significant aphasia or dysarthria and word salad. According to physical therapy when attempting to ambulate her she appeared to have pain in the left hip. She was seen in the emergency department for left knee pain. 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 She was told by the catering and events manager that long-term this may affect the left hip. The patient is calm and cooperative today. Exam Vital Signs (past 8 hours): - 11/16/18 06:04 11/16/18 07:35 11/16/18 08:33 Temperature 98.4 F 98.5 F Pulse Rate 79 78 Respiratory Rate 14 18 Blood Pressure 103/48 L 129/95 H Pulse Oximetry 96 95 95 Oxygen Delivery Method Room Air Narrative Exam Narrative: Pleasant female sitting in a chair in no acute distress Lungs: Clear to auscultation Cardiac exam: Regular rate and rhythm normal S1 and S2 with a 2/6 systolic ejection murmur Abdomen: Soft and nontender Extremity: No edema, internal rotation of the left hip causes pain internal and external rotation of the right hip is not painful the left knee is nontender Objective Labs Result Diagrams: 11/15/18 17:26 11/15/18 17:26 Labs: Laboratory Results - last 24 hr 11/15/18 11/15/18 11/15/18 09:39 11:20 17:26 WBC 14.8 H RBC 4.31 Hgb 12.3 Hct 37.6 MCV 87.3 MCH 28.7 MCHC 32.8 RDW 13.2 Plt Count 273 Neut % (Auto) 81.1 H Lymph % (Auto) 8.1 L [place] % (Auto) 10.4 Eos % (Auto) 0.0 L Baso % (Auto) 0.4 Neut # (Auto) 69189 H Sodium Potassium Chloride Carbon Dioxide BUN Creatinine Estimated GFR BUN/Creatinine Ratio Glucose Calcium Procalcitonin 0.05 Urine Color Yellow Urine Appearance Clear Urine pH 5.5 Ur Specific [place] >=1.030 H Urine Protein Negative Urine Glucose (UA) Negative Urine Ketones Negative Urine Occult Blood 2+ H Urine Nitrate Positive H Urine Bilirubin Negative Urine Urobilinogen 0.2 Ur Leukocyte Esterase Trace H Urine RBC 1-5/hpf Urine WBC 5-10/hpf H Urine Bacteria Many (>30) H Ur Culture Indicated? Specimen cultured Micro UA Comment Not Reportable 11/15/18 17:26 WBC RBC Hgb Hct MCV MCH MCHC RDW Plt Count Neut % (Auto) Lymph % (Auto) [place] % (Auto) Eos % (Auto) Baso % (Auto) Neut # (Auto) Sodium 141 Potassium 3.5 D Chloride 109 H Carbon Dioxide 23 BUN 9 Creatinine 0.50 L Estimated GFR > 60.0 BUN/Creatinine Ratio 18.0 Glucose 132 H Calcium 8.7 Procalcitonin Urine Color Urine Appearance Urine pH Ur Specific [place] Urine Protein Urine Glucose (UA) Urine Ketones Urine Occult Blood Urine Nitrate Urine Bilirubin Urine Urobilinogen Ur Leukocyte Esterase Urine RBC Urine WBC Urine Bacteria Ur Culture Indicated? Micro UA Comment Assessment & Plan (1) Left hip pain: Problem details: Will obtain x-ray of the hip to rule out DJD versus fracture Current visit: Yes Status: Acute (2) UTI (urinary tract infection): Problem details: Await cultures, continue ceftriaxone for now Urine cultures growing gram-negative rods, culture and sensitivity results still pending Qualifiers: Encounter type: Hematuria presence: with hematuria Indwelling urinary catheter type: Urinary tract infection type: acute cystitis Qualified Code(s): N30.01 - Acute cystitis with hematuria Current visit: Yes Status: Acute (3) Acute encephalopathy: Problem details: Patient appears at her baseline. Will continue as needed Haldol as needed Current visit: Yes Status: Acute (4) Hypothyroidism: Problem details: Resume thyroid medication when taking adequate PO Current visit: No Status: None Plan: Assessment/Plan Narrative: The patient is a 2 person max assist secondary to her left hip pain. Once we obtain x-rays of her hip will need to determine next steps. If she requires significant help she will be unable to return to assisted living and may require prison care at discharge.
--- NOTE | 2018-11-16 11:13 | P.PN_ITS ---
Subjective Date Patient Seen: 11/16/18 Interval history: The patient is alert and awake today. She does have significant aphasia or dysarthria and word salad. According to physical therapy when attempting to ambulate her she appeared to have pain in the left hip. She was seen in the emergency department for left knee pain. 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 She was told by the reflector driller and deburrer that long-term this may affect the left hip. The patient is calm and cooperative today. Exam Vital Signs (past 8 hours): - 11/16/18 06:04 11/16/18 07:35 11/16/18 08:33 Temperature 98.4 F 98.5 F Pulse Rate 79 78 Respiratory Rate 14 18 Blood Pressure 103/48 L 129/95 H Pulse Oximetry 96 95 95 Oxygen Delivery Method Room Air Narrative Exam Narrative: Pleasant female sitting in a chair in no acute distress Lungs: Clear to auscultation Cardiac exam: Regular rate and rhythm normal S1 and S2 with a 2/6 systolic ejection murmur Abdomen: Soft and nontender Extremity: No edema, internal rotation of the left hip causes pain internal and external rotation of the right hip is not painful the left knee is nontender Objective Labs Result Diagrams: 11/15/18 17:26 11/15/18 17:26 Labs: Laboratory Results - last 24 hr 11/15/18 11/15/18 11/15/18 09:39 11:20 17:26 WBC 14.8 H RBC 4.31 Hgb 12.3 Hct 37.6 MCV 87.3 MCH 28.7 MCHC 32.8 RDW 13.2 Plt Count 273 Neut % (Auto) 81.1 H Lymph % (Auto) 8.1 L [place] % (Auto) 10.4 Eos % (Auto) 0.0 L Baso % (Auto) 0.4 Neut # (Auto) 34191 H Sodium Potassium Chloride Carbon Dioxide BUN Creatinine Estimated GFR BUN/Creatinine Ratio Glucose Calcium Procalcitonin 0.05 Urine Color Yellow Urine Appearance Clear Urine pH 5.5 Ur Specific [place] >=1.030 H Urine Protein Negative Urine Glucose (UA) Negative Urine Ketones Negative Urine Occult Blood 2+ H Urine Nitrate Positive H Urine Bilirubin Negative Urine Urobilinogen 0.2 Ur Leukocyte Esterase Trace H Urine RBC 1-5/hpf Urine WBC 5-10/hpf H Urine Bacteria Many (>30) H Ur Culture Indicated? Specimen cultured Micro UA Comment Not Reportable 11/15/18 17:26 WBC RBC Hgb Hct MCV MCH MCHC RDW Plt Count Neut % (Auto) Lymph % (Auto) [place] % (Auto) Eos % (Auto) Baso % (Auto) Neut # (Auto) Sodium 141 Potassium 3.5 D Chloride 109 H Carbon Dioxide 23 BUN 9 Creatinine 0.50 L Estimated GFR > 60.0 BUN/Creatinine Ratio 18.0 Glucose 132 H Calcium 8.7 Procalcitonin Urine Color Urine Appearance Urine pH Ur Specific [place] Urine Protein Urine Glucose (UA) Urine Ketones Urine Occult Blood Urine Nitrate Urine Bilirubin Urine Urobilinogen Ur Leukocyte Esterase Urine RBC Urine WBC Urine Bacteria Ur Culture Indicated? Micro UA Comment Assessment & Plan (1) Left hip pain: Problem details: Will obtain x-ray of the hip to rule out DJD versus fracture Current visit: Yes Status: Acute (2) UTI (urinary tract infection): Problem details: Await cultures, continue ceftriaxone for now Urine cultures growing gram-negative rods, culture and sensitivity results still pending Qualifiers: Encounter type: Hematuria presence: with hematuria Indwelling urinary catheter type: Urinary tract infection type: acute cystitis Qualified Code(s): N30.01 - Acute cystitis with hematuria Current visit: Yes Status: Acute (3) Acute encephalopathy: Problem details: Patient appears at her baseline. Will continue as needed Haldol as needed Current visit: Yes Status: Acute (4) Hypothyroidism: Problem details: Resume thyroid medication when taking adequate PO Current visit: No Status: None Plan: Assessment/Plan Narrative: The patient is a 2 person max assist secondary to her left hip pain. Once we obtain x-rays of her hip will need to determine next steps. If she requires significant help she will be unable to return to assisted living and may require [facility] care at discharge.
[2018-11-16] MEDS: CEFTRIAXONE 1 GM/50 ML FROZ.PIGGY IV (13:29)
--- NOTE | 2018-11-16 16:19 | OT.IP.TRT ---
Current Diagnoses Sepsis, unspecified organism (11/15/18) Hypothyroidism, unspecified (11/15/18) Dementia in other diseases classified elsewhere with behavioral disturbance (11/15/18) Alzheimer's disease with early onset (11/15/18) Encephalopathy, unspecified (11/15/18) Pain in left hip (11/15/18) Acute cystitis with hematuria (11/15/18) Occupational Therapy Treatment Note M3 OT- IP Subjective and Pain Start: 11/16/18 16:17 Freq: Status: Active Protocol: Document 11/16/18 16:17 [facility] (Rec: 11/16/18 16:19 [facility] [id number]) OT- Subjective Occupational Therapy Visit Type Type Administrative Note Notes Able to talk to pt's daughter regarding pt's prior level of care but not able to get pt up at this time. Therefore attempt OT eval again tomorrow .
[2018-11-16] MEDS: ACETAMINOPHEN 325 MG TABLET 650 MG PO (19:08)
[2018-11-16] MEDS: SENNOSIDES 8.6 MG TABLET 17.2 MG PO (19:08)
--- NOTE | 2018-11-16 22:24 | PC.NURSE ---
1500 assumed care ot pt from outgoing shift. Pt awake. sitting in bed. fidgeting Pt is awake and alert. unable to answer any questions, says hi and other words but incomprehensible. Pt ate entire dinner. and given some snacks. Pt changed and tolerated ok, but pt swang her arms and managed to hit my mouth. Pt afraid of falling and needed much reassurance. Pt rolls around in bed. pt has no IV access. PT has not been trying to get out of bed. pt daughter in for a bit to visit with pt. PT bed alarm remains on for pt safety. will continue to monitor pt for safety.
[2018-11-17] VITALS (9 sets, daily range): BP systolic 100–152; BP diastolic 42–90; PULSE 65–73; RESP 16–20; TEMP 36.3–36.9; O2SAT 95–97
[2018-11-17] MEDS: DOCUSATE 100 MG CAPSULE PO ×2 (08:49→20:07)
[2018-11-17] MEDS: IBUPROFEN 600 MG TABLET PO ×2 (08:49→20:07)
[2018-11-17] MEDS: ENOXAPARIN 40 MG/0.4 ML SYRINGE SUBCUT (08:50)
--- NOTE | 2018-11-17 10:00 | PT.IPTN ---
Current Diagnoses Sepsis, unspecified organism (11/15/18) Hypothyroidism, unspecified (11/15/18) Dementia in other diseases classified elsewhere with behavioral disturbance (11/15/18) Alzheimer's disease with early onset (11/15/18) Encephalopathy, unspecified (11/15/18) Pain in left hip (11/15/18) Acute cystitis with hematuria (11/15/18) Physical Therapy Treatment Note M2 PT-IP Current Condition Start: 11/16/18 13:14 Freq: NEEDED Status: Active Protocol: Document 11/16/18 09:51 AB (Rec: 11/16/18 13:39 AB [id number]) Physical Therapy Current Condition Current Condition Evaluation Date 11/16/18 Treatment Diagnosis UTI; difficulty in walking Onset Date 11/15/18 Precautions Other Precautions falls M3 PT-IP Subjective Start: 11/16/18 13:14 Freq: NEEDED Status: Active Protocol: Document 11/17/18 09:45 SA (Rec: 11/17/18 10:00 SA [id number]) Subjective Physical Therapy Visit Type Type Treatment Note Visit Start Time 09:05 Visit Stop Time 09:35 Total Visit Minutes 30 Number of DIRECT SELLING COUNSELOR Visits 1 Physical Therapy Visit Comments Patient Comments Pt presents with word salad, unable to confirm or deny pain . Therapy Pain Assessment Pain When Pain Assessed During Mobility Pain Present Pain Present Unable to Respond FLACC Pain Scale Face Occasional grimace/frown Legs Normal position; relaxed Activity Squirming,shifting Cry No cry (awake or asleep) Consolability Reassurable with touch FLACC Total 3 M4 PT-IP Mobility and Gait Start: 11/16/18 13:14 Freq: NEEDED Status: Active Protocol: Document 11/17/18 09:45 SA (Rec: 11/17/18 10:00 SA [id number]) PT-Bed Mobility Assessment Rolling Type of Rolling Roll to Left Level of Assist Minimal Assistance Supine to Sit Supine to Sit Minimal Assistance 1 Person Assistance Head of Bed Elevated Bedrails Scooting Scooting to Edge of Bed Minimal Assistance PT-Transfer Assessment Sit to and From Stand Sit to and from Stand Moderate Assistance 1 Person Assistance Use of Upper Extremities Equipment Transfer Assistive Device Gait Belt Front Wheeled Walker Orthotic/Prosthetic Devices or Brace: No Transfers Transfer Destination Chair Transfer Technique Stand Step Pivot Transfer Ability Level of Assist Moderate Assistance 1 Person Assistance Use of Upper Extremities Comments Mobility Comments Pt requires clear, simple verbal cues and tactile cues with mobility tasks. Ptoor movement planning and sequencing, easily distracted with constant re-direction. Gait Assessment Gait Gait Assistance Required: Minimum Assistance 1 Person Assist Distance (Feet) 30 Able to Maintain Weight Bearing Status Yes During Gait Assistive Devices Assistive Device Gait Belt Front Wheeled Walker Gait Deviations General Gait Pattern Decreased Stride Length Decreased Feet Clearance Factors Limiting Gait Function Factors Limiting Gait Function Decreased Activity Tolerance Decreased Strength Difficulty Following Directions Incoordination Limited Range of Motion Pain Poor Balance Poor Safety Awareness Comments Gait Comments Pt required Min A x 1 with and SBA x 1 in case L hip pain was preventative to ambulation . Pt had decreased pain today and was able to WB on LLE much more. This DIRECT SELLING COUNSELOR controlled FWW and used it to guide patient during ambulation. Mod tactile cues provided and no LOB noted. M5 PT-IP Objective Assessments Start: 11/16/18 13:14 Freq: NEEDED Status: Active Protocol: Document 11/16/18 09:51 AB (Rec: 11/16/18 13:39 AB [id number]) Orientation Orientation/Cognition Level of Alertness Alert Language Function Ability Garbled Speech Safety Awareness Decreased Safety Awareness Gross Range of Motion Lower Extremity ROM Assessment Within Functional Limits Strength Lower Extremity Strength Assessment Left Impaired Comments Strength Comments unable to complete MMT but pt has difficulty moving RLE and requiring assistance during bed mobility to move to EOB M6 PT-IP Treatment Start: 11/16/18 13:14 Freq: NEEDED Status: Active Protocol: Document 11/17/18 09:45 SA (Rec: 11/17/18 10:00 [id number]) Physical Therapy Treatment Exercises Exercises Ankle Pumps Seated Knee Flexion/Extension Other Treatments Other Treatment Performed Pt unable to follow cues for exercise, was able to repeat with passive movement. M7 PT-IP Assessment and Plan Start: 11/16/18 13:14 Freq: NEEDED Status: Active Protocol: Document 11/17/18 09:45 SA (Rec: 11/17/18 10:00 [id number]) PT Summary Assessment and Plan Potential Rehabilitation Potential Fair Status of Condition at Evaluation Evolving Summary Assessment Summary Improved functional mobility today with decrease in L hip pain, Nursing medicated prior to PT session. Pt unable to sequence or respond appropriately to verbal cues, does well with tactile cues. Min A for gait and Mod A for transfers as turning is is a challenge. Frequency of Treatment Frequency Of Treatment Once a Day Recommendations To Nursing Amount of Assist Needed 1 Person Assist Discharge Recommendations PT Discharge Recommendations SNF Rehab
--- NOTE | 2018-11-17 10:46 | OT.IP.EVAL ---
Current Diagnoses Sepsis, unspecified organism (11/15/18) Hypothyroidism, unspecified (11/15/18) Dementia in other diseases classified elsewhere with behavioral disturbance (11/15/18) Alzheimer's disease with early onset (11/15/18) Encephalopathy, unspecified (11/15/18) Pain in left hip (11/15/18) Acute cystitis with hematuria (11/15/18) Past Medical History (Last Updated 11/15/18 @ 16:41 by Mairlu Sandhu RN) TBI (traumatic brain injury) (Acute) Alzheimer disease (Chronic) Hypothyroid (Chronic) Surgical History (Last Reviewed 11/15/18 @ 15:59 by Angie Turner MD) Status post arthroscopy Occupational Therapy Inpatient Evaluation/Re-Eval M1 PT/OT-IP Prior Functional Status Start: 11/16/18 13:14 Freq: NEEDED Status: Active Protocol: Document 11/17/18 10:46 PJM (Rec: 11/17/18 12:19 PJM [id number]) Medical Review Prior Functional Status Medical History Reviewed Yes Communication pt non verbal with garbled speech at baseline per chart notes Mobility and Gait per Lyssa DARSHANA: pt is independent with ambulation without AD Activities of Daily Living and IADL's Pt able to feed self with supervision and verbal cues; she requires max to total assistance with all other self care due to cognitive status Social History Household Members caregiver Living Arrangements Memory Care unit Number of Stairs To Enter/Railing? no stairs to access pt's room Home Environment High Toilet Walk in Shower Home Equipment Grab Bars Near Toilet Grab Bars In Shower Additional Social History Comment Pt is in memory care unit per chart notes M2 OT-IP Current Condition Start: 11/16/18 16:17 Freq: Status: Active Protocol: Document 11/17/18 10:46 PJM (Rec: 11/17/18 12:19 PJM [id number]) Occupational Therapy Current Condition Current Condition Evaluation Date 11/17/18 Treatment Diagnosis acute UTI w/ sepsis and near syncope Diagnosis Onset Date 11/15/18 Post Operative Precautions Other Precautions fall risk, confusion M3 OT- IP Subjective and Pain Start: 11/16/18 16:17 Freq: Status: Active Protocol: Document 11/17/18 10:46 PJM (Rec: 11/17/18 12:19 PJM [id number]) OT- Subjective Occupational Therapy Visit Type Type Initial Evaluation Visit Start Time 10:25 Visit Stop Time 10:46 Total Visit Minutes 21 Occupational Therapy Visit Comments Patient Comments pt has garbled speech with occasional yes or no response; otherwise speech was unintelligible this session Patient/Caregiver Goals pt unable to verbalize goal due to cognitive status OT Pain Assessment Pain Present Pain Present Unable to Respond FLACC Pain Scale Face No particular expression Legs Normal position; relaxed Consolability Content, relaxed M4 OT- IP ADL's Start: 11/16/18 16:17 Freq: Status: Active Protocol: Document 11/17/18 10:46 PJReji (Rec: 11/17/18 12:19 PJ [id number]) OT MMB-Swph-Ajrabau General Evaluation Self-Feeding Ability Standby Assistance Comments OT Self-Feeding Comments pt needs verbal cues and initial demo to drink from cup ; per nursing staff, pt able to feed self with verbal cues and supervision for safety OT ADL-Grooming General Evaluation Grooming Ability Total Assistance Areas Needing Assistance Retrieving/Set-up of Grooming Items Combing/Brushing Hair Face Washing Comments OT Grooming Comments pt did not purposefully use hairbrush or washcloth placed in hand even after demo and hand over hand guiding OT ADL-Oral Care General Eval Oral Care Ability Total Assistance Areas of Assistance Retrieving/Set-Up of Items Comments Oral Care Comments pt did not purposefully use toothbrush placed in hand even after demo and hand over hand guiding OT ADL-Dressing General Eval Upper Body Dressing Ability Total Assistance Lower Body Dressing Ability Total Assistance OT ADL-Toileting General Evaluation Toileting Ability Total Assistance Comments OT Toileting Comments pt is incontinent OT ADL-Bathing Comments OT Bathing Comments did not occur this session M5 OT- IP IADL's Start: 11/16/18 16:17 Freq: Status: Active Protocol: Document 11/17/18 10:46 PJM (Rec: 11/17/18 12:19 PJ [id number]) OT-Instrumental Activities of Daily Living Deficits IADL Deficits Identified Deficits Home Safety Awareness Awareness of Need for Assistance at Home Decreased Awareness Ability to Problem Solve Emergency Unable to Problem Solve Situations Medication Management Medication Management Caregiver Administers Money Management Money Management Caregiver Provides Assistance Meal Preparation Meal Preparation Caregiver Provides Assist Tool Design Engineer Tool Design Engineer Caregiver Provides Assist Driving Driving Caregiver Provides Assist M6 OT- IP Functional Cognition Start: 11/16/18 16:17 Freq: Status: Active Protocol: Document 11/17/18 10:46 PJM (Rec: 11/17/18 12:19 PJM [id number]) Cognitive Factors Limiting Selfcare Function Cognitive Ability Level of Alertness Confusional State Patient Orientation Name Attention Span Ability Unable to Focus Unable to Sustain Attention Memory Description Immediate Impaired Short Term Impaired Presser Automatic Impaired Problem Solving Ability Unable to Identify Errors Executive Function Ability Unable to Hold Focus Cognitive Comments Cognitive Assessment Comments Pt has hx of severe dementia and TBI. Pt oriented to self only. Pt followed command to drink from cup with demo and initial hand over hand guiding ; otherwise no command following this session. OT- Vision and Hearing OT- Hearing Assessment OT- Hearing Assessment WFL OT- Vision Assessment Vision Assessment Comments Unable to formally assess vision due to cognitive status M7 OT- IP Mobility and Balance Start: 11/16/18 16:17 Freq: Status: Active Protocol: Document 11/17/18 10:46 PJM (Rec: 11/17/18 12:19 PJM [id number]) OT-Transfer Assessment Comments Mobility Comments did not occur this session; see P.T. notes OT- Gait Assessment Comments Gait Ability Comments did not occur this session; see P.T. notes OT- Balance Assessment Comments Other Balance Tests/Deviations/Treatment did not occur this session; : see P.T. notes M8 OT- IP Objective Assessments Start: 11/16/18 16:17 Freq: Status: Active Protocol: Document 11/17/18 10:46 PJM (Rec: 11/17/18 12:19 PJM [id number]) OT Gross Range of Motion Upper Extremity Range of Motion Assessment Within Functional Limits OT Strength Upper Extremity Strength Assessment Within Functional Limits Comments Strength Comments No focal deficits noted by observation OT- Coordination Assessment Comments Coordination Comments for self feeding OT-Muscle Tone Assessment Muscle Tone WNL Yes OT Sensation Assessment Comments Summary Comments no obvious BUE sensory deficits noted by observation Edema Edema Absent M9 OT- IP Assessment and Plan Start: 11/16/18 16:17 Freq: Status: Active Protocol: Document 11/17/18 10:46 PJM (Rec: 11/17/18 12:19 PJM [id number]) OT Summary Assessment and Plan Potential Analytic Complexity at Evaluation Low Summary Assessment Summary Low complexity OT assessment completed. Pt has severe cognitive deficits and functional apraxia that interfere with ability to complete all self care tasks. No consistent command following this session even with demo and context. Pt appears to be at baseline level of self care function with no OT goals identified for this admission. Pt will continue to receive P.T. services to increase functional mobility per P.T. notes. D/C plan is back to memory care unit when medically stable per chart notes. Frequency of Treatment Frequency Of Treatment Discharge Discharge Recommendations Other Discharge Recommendations Return to memory care unit.
[2018-11-17] MEDS: levoFLOXacin 500 MG TABLET PO (13:56)
[2018-11-17] MEDS: ACETAMINOPHEN 325 MG TABLET 650 MG PO (13:56)
--- NOTE | 2018-11-17 15:34 | PM.PN.1 ---
Subjective Date Patient Seen: 11/17/18 Interval history: Patient is awake and alert. She is still non verbal or with severe expressive aphasia. She was able to ambulate but requires maximum assist. She continued to have pain in her left hip. She appears less confused today. Her mobility is the major issue preventing her from returning to her assisted living. Exam Vital Signs (past 8 hours): - 11/17/18 08:15 11/17/18 08:21 11/17/18 11:50 Temperature 98.5 F 98.4 F Pulse Rate 66 65 Respiratory Rate 18 16 Blood Pressure 100/75 105/62 Pulse Oximetry 95 95 96 Oxygen Delivery Method Room Air Oxygen Flow Rate 0 Narrative Exam Narrative: Elderly Female in NAD Lungs: Clear to auscultation CV: RRR nl Sl S2 AbD;soft/ non tender/ non distended Ext: no edema Objective Labs Result Diagrams: 11/15/18 17:26 11/15/18 17:26 Assessment & Plan (1) Left hip pain: Problem details: Will obtain x-ray of the hip to rule out DJD versus fracture. No evidence of fracture, consider pelvic CT if she continues to have inability to ambulate Current visit: Yes Status: Acute (2) Hypothyroidism: Problem details: Resume thyroid medication when taking adequate PO. 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 Cultures obtained, antibiotics switch to po levofloxacin Qualifiers: Encounter type: Hematuria presence: with hematuria Indwelling urinary catheter type: Urinary tract infection type: acute cystitis Qualified Code(s): N30.01 - Acute cystitis with hematuria Current visit: Yes Status: Acute (5) Acute encephalopathy: Problem details: Patient appears at her baseline. Will continue as needed Haldol as needed Current visit: Yes Status: Acute Plan: Assessment/Plan Narrative: Continue PT/OT, she may need SNF at discharge, consider pelvic ct if mobility remains impaired.
--- NOTE | 2018-11-17 17:10 | CM.DPC ---
DCP: continued: Case received and discussed in Team Rounds. Dr. Turner states pt would be ready for a d/c to snf tomorrow. EMR reviewed and received a call from Betsy Roca/POA daughter who explained that she had toured snfs as pt lives at [facility], has dementia and is not able to return there right away. She hopes for a rehab stay at the [facility] as this is 5 minutes from her work. She said she toured and talked with [facility] who indicated they would look at the referral. A vm is now into the [facility] admission line and vm left. Will fax clinical referral info tomorrow as well as confirm with [facility] that they cannot accept pt back right away. Reviewed admission status: After some changes noted in UR notes: INPT admission status was confirmed 11/15/UR TOMAS Clark. PASRR: will be needed.
[2018-11-17] MEDS: SENNOSIDES 8.6 MG TABLET 17.2 MG PO (20:07)
--- NOTE | 2018-11-17 23:44 | PC.NURSE ---
Addendum entered by Marcelle Chowdary R.N. 11/18/18 06:07: Has been needing 1:1 contact for safety much of shift as has been restless and attempting to climb out of bed. Was medicated earlier with Ibuprofen for presumed pain but did not alter behavior. Is not combative but does peanut picker tightly to clothing or staff hand during cares. Has had 2 large incontinent voids. Original Note: Patient is alert but can only state her first name and then rest of conversation is garbled and not understandable. Respirations are shallow with breath sounds CTA and RA sat of 97%; patient does not follow direction to deep breathe. HRR. BT hypoactive; abdomen is soft. Has not voided in past 8h; MD made aware on previous shift and has order to in/out if bladder scan > 400ml. Is able to move self in bed but requires walker and 2 assist when out of bed. FLACC score is 3. Fall risk score is high and bed alarm is activated.
[2018-11-18] MEDS: IBUPROFEN 600 MG TABLET PO ×2 (02:02→11:59)
[2018-11-18 03:05] VITALS: BP 104/60; PULSE 90; RESP 17; TEMP 36.6; O2SAT 96
[2018-11-18 07:20] VITALS: BP 102/62; PULSE 65; RESP 24; TEMP 36.2; O2SAT 96
[2018-11-18 07:50] VITALS: O2SAT 96
--- NOTE | 2018-11-18 12:25 | PM.PN.1 ---
Subjective Date Patient Seen: 11/18/18 Interval history: Sleepy this morning but arousable. Patient was up until 2 am this morning. She continues to require a two person assist to ambulate She did not eat breakfast to date. She has had no further syncopal episodes. Exam Vital Signs (past 8 hours): - 11/18/18 07:20 11/18/18 07:50 Temperature 97.2 F L Pulse Rate 65 Respiratory Rate 24 Blood Pressure 102/62 Pulse Oximetry 96 96 Oxygen Delivery Method Room Air Oxygen Flow Rate 0 Narrative Exam Narrative: Pleasant female in NAD Lungs: Clear to auscultation CV: RRR nl Sl s2 Abd: soft/ non tender/ non distended Ext: no edema Objective Labs Result Diagrams: 11/15/18 17:26 11/15/18 17:26 Assessment & Plan (1) Left hip pain: Problem details: Will obtain x-ray of the hip to rule out DJD versus fracture. No evidence of fracture, consider pelvic CT if she continues to have inability to ambulate. Will order pelvic CT today Current visit: No Status: Acute (2) Hypothyroidism: Problem details: Resume thyroid medication when taking adequate PO. Current visit: No Status: None (3) UTI (urinary tract infection): Problem details: Await cultures, continue ceftriaxone for now Urine cultures growing gram-negative rods, culture and sensitivity results still pending. Cultures obtained, antibiotics switch to po levofloxacin Qualifiers: Encounter type: Hematuria presence: with hematuria Indwelling urinary catheter type: Urinary tract infection type: acute cystitis Qualified Code(s): N30.01 - Acute cystitis with hematuria Current visit: Yes Status: Acute (4) Acute encephalopathy: Problem details: Patient appears at her baseline. 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
--- NOTE | 2018-11-18 13:19 | PT.IPTN ---
Current Diagnoses Sepsis, unspecified organism (11/15/18) Hypothyroidism, unspecified (11/15/18) Dementia in other diseases classified elsewhere with behavioral disturbance (11/15/18) Alzheimer's disease with early onset (11/15/18) Encephalopathy, unspecified (11/15/18) Pain in left hip (11/15/18) Acute cystitis with hematuria (11/15/18) Physical Therapy Treatment Note M2 PT-IP Current Condition Start: 11/16/18 13:14 Freq: NEEDED Status: Active Protocol: Document 11/16/18 09:51 AB (Rec: 11/16/18 13:39 AB [id number]) Physical Therapy Current Condition Current Condition Evaluation Date 11/16/18 Treatment Diagnosis UTI; difficulty in walking Onset Date 11/15/18 Precautions Other Precautions falls M3 PT-IP Subjective Start: 11/16/18 13:14 Freq: NEEDED Status: Active Protocol: Document 11/18/18 13:09 SA (Rec: 11/18/18 13:19 SA [id number]) Subjective Physical Therapy Visit Type Type Treatment Note Visit Start Time 12:45 Visit Stop Time 13:05 Total Visit Minutes 20 Number of HEEL COVER SPLITTER Visits 2 Physical Therapy Visit Comments Patient Comments Pt responds to her name and occasionally repeats back what you say to her. Is unabl eto confirm or deny L hip pain. Therapy Pain Assessment Pain When Pain Assessed During Mobility Pain Present Pain Present Unable to Respond M4 PT-IP Mobility and Gait Start: 11/16/18 13:14 Freq: NEEDED Status: Active Protocol: Document 11/18/18 13:09 SA (Rec: 11/18/18 13:19 SA [id number]) PT-Bed Mobility Assessment Rolling Type of Rolling Roll to Left Level of Assist Minimal Assistance Supine to Sit Supine to Sit Minimal Assistance 1 Person Assistance Head of Bed Elevated Bedrails Scooting Scooting to Edge of Bed Minimal Assistance Scooting Up and Down in Bed Minimal Assistance PT-Transfer Assessment Sit to and From Stand Sit to and from Stand Minimal Assistance 1 Person Assistance Equipment Transfer Assistive Device Gait Belt Front Wheeled Walker Orthotic/Prosthetic Devices or Brace: No Transfers Transfer Destination Bed Transfer Technique Stand Step Pivot Transfer Ability Level of Assist Minimal Assistance 1 Person Assistance Use of Upper Extremities Comments Mobility Comments Bed mobility with breif change , Mod A to roll to R and L. Stand pivot txs with Min A and steering of FWW by therapist. Pt needs frequent redirection for attention to mobility tasks. Gait Assessment Gait Gait Assistance Required: Minimum Assistance 1 Person Assist Distance (Feet) 150 Able to Maintain Weight Bearing Status Yes During Gait Assistive Devices Assistive Device Gait Belt Front Wheeled Walker Gait Deviations General Gait Pattern Decreased Stride Length Decreased Feet Clearance Factors Limiting Gait Function Factors Limiting Gait Function Decreased Activity Tolerance Decreased Strength Difficulty Following Directions Pain Poor Balance Poor Safety Awareness Comments Gait Comments Gait training in room and halls x 150 feet around [employer] [facility] with Min A which includes management of FWW. Caregiver training provided to CLIENT LIAISON that is 1 on 1 with Gillian this evening for safe ambulaiton with FWW. Pt was walking with CLIENT LIAISON at end of session. Pt able ot WB evenly on LLE and does not demonstrate visibly pain with gait. PT-Balance Assessment Sitting Balance and Reactions Static Sitting Balance Ability Good Dynamic Sitting Balance Ability Fair M5 PT-IP Objective Assessments Start: 11/16/18 13:14 Freq: NEEDED Status: Active Protocol: Document 11/16/18 09:51 AB (Rec: 11/16/18 13:39 AB [id number]) Orientation Orientation/Cognition Level of Alertness Alert Language Function Ability Garbled Speech Safety Awareness Decreased Safety Awareness Gross Range of Motion Lower Extremity ROM Assessment Within Functional Limits Strength Lower Extremity Strength Assessment Left Impaired Comments Strength Comments unable to complete MMT but pt has difficulty moving RLE and requiring assistance during bed mobility to move to EOB M6 PT-IP Treatment Start: 11/16/18 13:14 Freq: NEEDED Status: Active Protocol: Document 11/18/18 13:09 SA (Rec: 11/18/18 13:19 SA [id number]) Physical Therapy Treatment Exercises Exercises Ankle Pumps Seated Knee Flexion/Extension Other Treatments Other Treatment Performed Pt unable to follow cues for exercise, was able to repeat with passive movement. M7 PT-IP Assessment and Plan Start: 11/16/18 13:14 Freq: NEEDED Status: Active Protocol: Document 11/18/18 13:09 SA (Rec: 11/18/18 13:19 SA [id number]) PT Summary Assessment and Plan Potential Rehabilitation Potential Fair Status of Condition at Evaluation Evolving Summary Assessment Summary Pt appears to be returning to baseline with improving ambulation ability. FWW is still confusing for her and needs to be managed mostly by caregiver at this time specifically with turns. Frequency of Treatment Frequency Of Treatment Once a Day Recommendations To Nursing Amount of Assist Needed 1 Person Assist Discharge Recommendations PT Discharge Recommendations SNF Rehab
[2018-11-18 13:40] VITALS: BP 102/60; PULSE 65; RESP 20; TEMP 36.7; O2SAT 98
[2018-11-18 15:57] VITALS: BP 152/85; PULSE 65; RESP 17; TEMP 36.6; O2SAT 95
[2018-11-18 20:03] VITALS: BP 119/52; PULSE 66; RESP 16; TEMP 36.8; O2SAT 94
[2018-11-18] MEDS: QUETIAPINE 25 MG TABLET 12.5 MG PO (20:10)
[2018-11-18] MEDS: SENNOSIDES 8.6 MG TABLET 17.2 MG PO (20:11)
[2018-11-18] MEDS: DOCUSATE 100 MG CAPSULE PO (20:11)
--- NOTE | 2018-11-18 21:58 | PC.NURSE ---
SHIFT NOTE Received pt walking in hallway with TECHNICAL WRITER AND EDITOR. confused. follows simple commands with lots of cues generalized weakness. expressive aphasia (baseline). pt does not call for assist. high fall risk. bed/chair alarm at all times. no episodes of restless or agitation. pt does not appear to be in any pain. frequent visual checks and reorientation.
[2018-11-19 00:05] VITALS: BP 92/62; PULSE 63; RESP 16; TEMP 36.4; O2SAT 97
[2018-11-19 00:20] VITALS: O2SAT 97
[2018-11-19 03:30] VITALS: BP 117/69; PULSE 65; RESP 17; TEMP 36.6; O2SAT 97
[2018-11-19] MEDS: ENOXAPARIN 40 MG/0.4 ML SYRINGE SUBCUT (10:10)
[2018-11-19] MEDS: levoFLOXacin 500 MG TABLET PO (10:10)
[2018-11-19] MEDS: ACETAMINOPHEN 325 MG TABLET 650 MG PO (10:11)
[2018-11-19 10:30] VITALS: BP 108/63; PULSE 63; RESP 18; TEMP 36.5; O2SAT 95
[2018-11-19 10:32] VITALS: O2SAT 95
--- NOTE | 2018-11-19 10:37 | PT.IPTN ---
Current Diagnoses Sepsis, unspecified organism (11/15/18) Hypothyroidism, unspecified (11/15/18) Dementia in other diseases classified elsewhere with behavioral disturbance (11/15/18) Alzheimer's disease with early onset (11/15/18) Encephalopathy, unspecified (11/15/18) Pain in left hip (11/15/18) Acute cystitis with hematuria (11/15/18) Physical Therapy Treatment Note M2 PT-IP Current Condition Start: 11/16/18 13:14 Freq: NEEDED Status: Active Protocol: Document 11/16/18 09:51 AB (Rec: 11/16/18 13:39 AB [id number]) Physical Therapy Current Condition Current Condition Evaluation Date 11/16/18 Treatment Diagnosis UTI; difficulty in walking Onset Date 11/15/18 Precautions Other Precautions falls M3 PT-IP Subjective Start: 11/16/18 13:14 Freq: NEEDED Status: Active Protocol: Document 11/19/18 10:36 AB (Rec: 11/19/18 10:37 AB [id number]) Subjective Physical Therapy Visit Type Notes attempted to see pt but nurse stated to not get into pt's room and not to wake pt up. stated that she will let PT know when pt is ready.
--- NOTE | 2018-11-19 11:18 | PT.IPTN ---
Current Diagnoses Sepsis, unspecified organism (11/15/18) Hypothyroidism, unspecified (11/15/18) Dementia in other diseases classified elsewhere with behavioral disturbance (11/15/18) Alzheimer's disease with early onset (11/15/18) Encephalopathy, unspecified (11/15/18) Pain in left hip (11/15/18) Acute cystitis with hematuria (11/15/18) Physical Therapy Treatment Note M2 PT-IP Current Condition Start: 11/16/18 13:14 Freq: NEEDED Status: Active Protocol: Document 11/16/18 09:51 AB (Rec: 11/16/18 13:39 AB [id number]) Physical Therapy Current Condition Current Condition Evaluation Date 11/16/18 Treatment Diagnosis UTI; difficulty in walking Onset Date 11/15/18 Precautions Other Precautions falls M3 PT-IP Subjective Start: 11/16/18 13:14 Freq: NEEDED Status: Active Protocol: Document 11/19/18 11:18 AB (Rec: 11/19/18 12:37 AB [id number]) Subjective Physical Therapy Visit Type Type Treatment Note Visit Start Time 11:18 Visit Stop Time 11:45 Total Visit Minutes 27 Number of ADVERTISING STATISTICAL CLERK Visits 0 M4 PT-IP Mobility and Gait Start: 11/16/18 13:14 Freq: NEEDED Status: Active Protocol: Document 11/19/18 11:18 AB (Rec: 11/19/18 12:37 AB [id number]) PT-Bed Mobility Assessment Supine to Sit Supine to Sit Standby Assistance Head of Bed Elevated PT-Transfer Assessment Sit to and From Stand Sit to and from Stand Contact Guard Assistance Equipment Transfer Assistive Device Gait Belt Comments Mobility Comments pt requires frequent cues and instructions to complete tasks . Gait Assessment Gait Gait Assistance Required: Contact Guard Assist Distance (Feet) 300 Able to Maintain Weight Bearing Status Yes During Gait Assistive Devices Assistive Device None Gait Belt Factors Limiting Gait Function Factors Limiting Gait Function Poor Balance Poor Safety Awareness Comments Gait Comments pt initially ambulated using FWW ~ 50 ft but PT opted to do TUB CHUCKER due to pt's progress with standing balance and steadiness. TUB CHUCKER provided for safety and redirection. pt continues to require increase verbal and tactile cues due to decrease cognitive level. M5 PT-IP Objective Assessments Start: 11/16/18 13:14 Freq: NEEDED Status: Active Protocol: Document 11/16/18 09:51 AB (Rec: 11/16/18 13:39 AB [id number]) Orientation Orientation/Cognition Level of Alertness Alert Language Function Ability Garbled Speech Safety Awareness Decreased Safety Awareness Gross Range of Motion Lower Extremity ROM Assessment Within Functional Limits Strength Lower Extremity Strength Assessment Left Impaired Comments Strength Comments unable to complete MMT but pt has difficulty moving RLE and requiring assistance during bed mobility to move to EOB M6 PT-IP Treatment Start: 11/16/18 13:14 Freq: NEEDED Status: Active Protocol: Document 11/18/18 13:09 SA (Rec: 11/18/18 13:19 SA [id number]) Physical Therapy Treatment Exercises Exercises Ankle Pumps Seated Knee Flexion/Extension Other Treatments Other Treatment Performed Pt unable to follow cues for exercise, was able to repeat with passive movement. M7 PT-IP Assessment and Plan Start: 11/16/18 13:14 Freq: NEEDED Status: Active Protocol: Document 11/19/18 11:18 AB (Rec: 11/19/18 12:37 AB [id number]) PT Summary Assessment and Plan Potential Rehabilitation Potential Fair Summary Impairments Pain ROM Strength Balance Coordination Sensation Tone Cognition Bed Mobility Transfers Gait Activity Tolerance Progress Towards Goals Slow Progress - Other Assessment Summary pt progressing slowly with mobility able to ambulate TUB CHUCKER CGA with max verbal and tactile cues. Progress affected by decrearse cognitive level. pt lives at [facility] and may go back there when medically stable. Goals Bed Mobility Goal Standby Assistance Transfer Goal Standby Assistance Gait Goal Standby Assistance Gait Distance 300 Days to Meet Goals 5 Frequency of Treatment Frequency Of Treatment Once a Day Treatment Plan Physical Therapy Treatment Plan Bed Mobility Training Transfer Training Gait Training Therapeutic Exercise Balance Retraining Discharge Planning Neuromuscular Re-ed Coordination Retraining Manual Therapy Other Recommendations and Next Treatment ambulation Focus Recommendations To Nursing Amount of Assist Needed 1 Person Assist Discharge Recommendations PT Discharge Recommendations Home with / Assist
--- NOTE | 2018-11-19 11:39 | PC.NURSE ---
Addendum entered by Monica Ware R.N. 11/19/18 15:41: TSF - report called to TOMAS Lerma at [facility] [phone]. Original Note: AM NOTE - When pt awake, clustered care, incont urine, pericare performed, brief changed, face washed, pt has rubbed eyes and lids are reddened, oral care provided, ra 95%, hr 62, phys therapy in and pt ambul holding arm of PT around south end, pt speech is garbled, pt needs freq cues and unable to follow directions, needs direct guidance, ret to chair w/alarm set, swimming pool installer and servicer and dtr in room, pt does not recognize her dtr.
--- NOTE | 2018-11-19 14:20 | P.DS_ITS ---
History of Present Illness Date Patient Seen: 11/19/18 Chief complaint: Near syncope Narrative: Interval history: Patient is resting in bed comfortably and in no acute distress. She is nonverbal at baseline and when she does speak it is in the form of word salad due to prior CVA. She is able to eat as tolerated. She has decreased mobility and requiring PT and OT rehabilitation. She is discharging today to a assisted facility for continued therapy Discharge Providers Date of admission: 11/15/18 12:24 Primary care physician: OUSMANE Clement Consults: 11/15/18 15:54 Consult to Occupational Therapy Evaluate & Treat Comment: Physician Instructions: Evaluate and treat Consult to Physical Therapy Evaluate & Treat Comment: Physician Instructions: Evaluate and Treat Consult to Supervisor Building Maintenance Routine Comment: Discharge provider: Sherin Cai DO Discharge Date: 11/19/18 Summary Discharge Diagnosis: Acute E coli UTI, resolved. Left hip pain, improving. Hypothyroidism, chronic. Alzheimer's dementia with behavioral disturbance, chronic. 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 Hospital Course: Gillian Law is a 68-year-old female with a past medical history of dementia and CVA with residual deficit of expressive aphasia in the form of word salad/nonverbal at baseline who was admitted for syncopal episode and was found to have a UTI which was treated with ceftriaxone initially which was switched to levofloxacin to complete a 5 day course of antibiotics in total. She has had hip pain during her hospitalization with a negative hip x- ray and has been able to ambulate minimally. Per the patient's daughter, she has decreased mobility compared to baseline. She is being discharged to a assisted facility for further rehabilitation with physical therapy and occupational therapy prior to going back to her assisted living facility at [facility]. Status at Discharge Cognitive/behavioral status at discharge: The patient has a history of dementia and CVA expressive aphasia in the form of word salad/nonverbal at baseline. Functional status at discharge: uses cane/walker Overall status at discharge: patient is not back to baseline Exam Vital Signs (past 8 hours): - 11/19/18 10:30 11/19/18 10:32 Temperature 97.7 F Pulse Rate 63 Respiratory Rate 18 Blood Pressure 108/63 Pulse Oximetry 95 95 Oxygen Delivery Method Room Air Oxygen Flow Rate 0 Narrative Exam Narrative: General: Elderly female sitting in bed nonverbal, does not appear to be in any distress, well-developed, well-nourished. HEENT: Normocephalic, atraumatic. External ears without defect. Pupils equal, round, and reactive to light. Anicteric sclerae, moist conjunctivae, and no lid lag. Oropharynx free of erythema and cobble stoning with moist mucosa. Neck: Supple with full range of motion. No lymphadenopathy or thyromegaly. Cardiovascular: Regular rate and rhythm without murmurs, rubs, or gallops appreciated. Pulmonary: Clear to auscultation bilaterally without crackles, wheezes, or rhonchi. Normal respiratory effort with no use of accessory muscles. Abdomen: Bowel tones present. Soft, appears to be nontender, nondistended. No hepatosplenomegaly or masses appreciated. Extremities: No clubbing, cyanosis, or edema. Skin: Normal temperature, turgor, and texture; no rash, ulcers, or subcutaneous nodules appreciated. Neurological: Expressive aphasia with word salad. Known gait impairment and decreased mobility. Psychiatric: Nonverbal at baseline with exposed. Objective Labs Result Diagrams: 18 17:26 18 17:26 Discharge Plan Discharge Plan Patient Disposition: SNF Transfer to: [facility] Under care of provider: Geriatric Social Work ProfessorGeneral Foundry Worker: Wheelchair I certify the postop hospital assisted care is medically necessary on a continuing basis for any conditions for which he/ she received care during this hospitalization.: Yes The receiving facility has agreed to accept transfer and provide medical treatment.: Yes Discharge Med Rec/Prescriptions Prescriptions: New quetiapine 25 mg Tablet 12.5 mg PO BEDTIME Qty: 30 RF: 0 sennosides [senna] 8.6 mg Tablet 17.2 mg PO BEDTIME Qty: 30 RF: 0 docusate sodium 100 mg Capsule 100 mg PO BID Qty: 30 RF: 0 ibuprofen 600 mg Tablet 600 mg PO Q6HR PRN (Reason: As Needed For Fever/Mild Pain) Qty: 30 RF: 0 Continue acetaminophen 325 mg tablet 650 mg PO Q4H PRN (Reason: pain) Qty: 90 RF: 0 levothyroxine 112 mcg Tablet 112 mcg PO DAILY RF: 0 omega 3-pfe-qne-fish oil [Fish Oil] 1,000 mg (120 mg-180 mg) Capsule 1,000 mg PO DAILY RF: 0 melatonin 3 mg tablet 6 mg PO BEDTIME RF: 0 vitamin B complex [B Complex-Vitamin B12] tablet 1 tab PO DAILY RF: 0 cholecalciferol (vitamin D3) [Vitamin D3] 2,000 unit tablet 2,000 unit PO DAILY RF: 0 Changed lorazepam 0.5 MG tablet 1 tab PO TID Qty: 60 RF: 3 Follow up/Referrals: Shelia Petersen ARNP [Primary Care Provider] - Discharge Health Status Brief summary of current health status: See discharge summary. Multidrug resistant organism: No MDRO Date verified: 11/19/18 Provider Discharge Instructions Diet: Diet as Tolerated Activity: Activity as tolerated Skin/Wound/Dressing Care Report to your healthcare provider any signs of infection, such as:: chills, fever [facility] Rehab type: Physical therapy and Occupational therapy Discharge Data Primary Care Provider: Shelia Petersen Attending Provider: Angie Turner Admsadia Date/Time: 11/15/18 12:24
--- NOTE | 2018-11-19 17:55 | PC.NURSE ---
DISCHARGE Received pt sitting up in bed, fidgeting with empt water cup. expressive aphasia. follows simple commands with cues inconsistently. does not appear to be in any pain or distress. pt dressed and transferred to wheelchair for discharge. off unit at approximately 1610 with INSPECTOR COLD WORKING escort. d/c packet given to [facility] motor vehicle escort driver. per report, pt's daughter to meet pt at [facility] facility.
== END 2018-11-19 16:10 | DRG 690 ==
LOC: ED 12:23 → AC 12:43
PROVIDERS: Admitting Provider Internal Medicine; Emergency Provider Emergency Medicine; PCP Nurse Practitioner Family; Visit Provider Internal Medicine
DX: N39.0 Urinary tract infection, site not specified (principal); F02.81 Dementia in other diseases classified elsewhere, unspecified severity, with behavioral disturbance; B96.20 Unspecified Escherichia coli [E. coli] as the cause of diseases classified elsewhere; G30.0 Alzheimer's disease with early onset; M25.562 Pain in left knee; E03.9 Hypothyroidism, unspecified
CPT/HCPCS: 36415; 36591; 71045; 73502; 73562; 80048; 81001; 83605; 84145; 84443; 85025; 85651; 86140; 87040; 87077; 87086; 96361; 96365; 96375; 97116; 97162; 97165; 97530; 99283; 99284; J1170; J1630; J1650

== ENCOUNTER → 2018-11-29 07:35 | Outpatient (REF) | payer MEDICARE, SELFPAY ==
[2018-11-15 17:00] VITALS: BMI 25.0
[2018-11-29 08:45] LABS: Add Manual Diff / Slide Review NO; Basophils Percent Auto 0.8 % (0-2); Eosinophils Percent Auto 2.4 % (2-4); Hematocrit 39.8 % (36-46); Hemoglobin 13.3 g/dL (12.0-16.0); Lymphocytes Percent Auto 21.4 % (25-40); Mean Corpuscular HGB Conc 33.3 % (30-36); Mean Corpuscular Hemoglobin 29.1 PG (26-34); Mean Corpuscular Volume 87.4 fL (80-100); Monocytes Percent Auto 8.8 % (3-14); Neutrophils Absolute Auto 6300 /uL (1500-7000); Neutrophils Percent Auto 66.6 % (50-75); Platelet Count 404 X10^3/uL (150-400); Red Blood Cell Count 4.56 X10^6/uL (4.0-5.2); Red Cell Distribution Width 13.1 % (11.6-14.8); White Blood Cell Count 9.5 X10^3/uL (4.5-11.0)
== END ==
LOC: LAB 07:35
PROVIDERS: PCP Nurse Practitioner Family; Visit Provider Nurse Practitioner Family
DX: N39.0 Urinary tract infection, site not specified (principal)
CPT/HCPCS: 36415; 85025

== ENCOUNTER 2019-06-06 16:57 | Emergency (ER) | payer MEDICARE, SELFPAY ==
[2018-11-15 17:00] VITALS: BMI 25.0
[2019-06-06 17:19] VITALS: BP 129/70; PULSE 71; RESP 16; TEMP 36.7; O2SAT 90
--- NOTE | 2019-06-06 17:53 | DI.CT.S_ITS ---
PROCEDURE: CT HEAD/BRAIN WO CON INDICATIONS: head injury, small laceration TECHNIQUE: Noncontrast 4.5 mm thick angled axial sections acquired from the foramen magnum to the vertex, with coronal and sagittal reformats. For radiation dose reduction, the following was used: automated exposure control, adjustment of mA and/or kV according to patient size. COMPARISON: [facility], CT, HEAD WITHOUT CONTRAST, 11/03/2017, 3:39. FINDINGS: Image quality: Excellent. CSF spaces: Basal cisterns are patent. No extra-axial fluid collections. The ventricles are symmetric in size and shape. Brain: No intracranial bleeds or masses. There is cerebral volume loss for age, with resultant ventricular and sulcal prominence. There are periventricular and deep white matter chronic small vessel ischemic changes. There is intracranial internal carotid artery atherosclerosis. Skull and face: A mild scalp laceration can be seen posteriorly. Calvarium and visualized facial bones appear intact, without suspicious lesions. Sinuses: Visualized sinuses and mastoids are clear. IMPRESSION: No acute intracranial process is seen. Small posterior scalp laceration. Note is made of age-appropriate brain parenchymal volume loss and chronic small vessel ischemic changes. Dictated by: Shahram Gaines M.D. on 06/06/2019 at 17:28 Approved by: Shahram Gaines M.D. on 06/06/2019 at 17:29
--- NOTE | 2019-06-06 18:11 | ED_ITS ---
HPI - Fall General Chief Complaint: Fall Stated Complaint: GLF, lac to head Time Seen by Provider: 06/06/19 17:53 Source: EMS Mode of arrival: EMS Limitations: other (Dementia) History of Present Illness HPI Narrative: Patient history dimension is nonverbal. All of the HPI was provided by EMS. Was reported that the patient had a witnessed fall at her care facility. Apparently she ?got wobbly? and fell over. Did hit the back of her head. No reported loss of consciousness. Related Data Home Medications Medication Instructions Recorded Confirmed cholecalciferol (vitamin D3) 2,000 unit PO DAILY 11/15/18 06/06/19 [Vitamin D3] levothyroxine 112 mcg PO DAILY 11/15/18 06/06/19 melatonin 6 mg PO BEDTIME 11/15/18 06/06/19 omega 7-bdq-xix-fish oil [Fish Oil] 1,000 mg PO DAILY 11/15/18 06/06/19 docusate sodium 100 mg PO DAILY 06/06/19 06/06/19 loperamide 2 mg PO PRN PRN MDD 8 caps 06/06/19 06/06/19 lorazepam 0.5 mg PO Q8H PRN 06/06/19 06/06/19 Previous Rx's Medication Instructions Recorded acetaminophen 325 mg tablet 650 mg PO Q4H PRN #90 tab 09/15/18 ibuprofen 600 mg PO Q6HR PRN #30 tab 11/19/18 quetiapine 12.5 mg PO BEDTIME #30 tab 11/19/18 sennosides [senna] 17.2 mg PO BEDTIME #30 tab 11/19/18 vitamin B complex tablet 1 tab PO DAILY #31 tab 02/16/19 Allergies Allergy/AdvReac Type Severity Reaction Status Date / Time Penicillins [PENICILLINS] Allergy Severe hives, Verified 06/06/19 17:06 vomiting Sulfa (Sulfonamide Allergy Intermediate Hives Verified 06/06/19 17:06 Antibiotics) [SULFA (SULFONAMIDE ANTIBIOTICS)] Review of Systems Review of Systems ROS Unobtainable: Unobtainable due to medical condition Exam Initial Vital Signs Initial Vital Signs: Vital Signs Temperature 98.1 F 06/06/19 17:19 Pulse Rate 71 06/06/19 17:19 Respiratory Rate 16 06/06/19 17:19 Blood Pressure 129/70 06/06/19 17:19 Pulse Oximetry 90 L 06/06/19 17:19 Const General: comfortable, well developed and well groomed Orientation: alert, awake and other (Nonverbal) HENMT Head: other (0.5 cm laceration occipital portion of the scalp) Eyes Pupils: PERRL Resp Effort & Inspection: normal respiratory effort Auscultation: clear to auscultation bilaterally Cardio Rate: regular rate Rhythm: regular rhythm Skin Lesions: no lesions Rashes: no rashes Neuro Other: At baseline per reports of EMS Extrem General: capillary refill normal Other: No gross deformities, moves all 4 extremities without apparent pain Psych Appearance: grossly normal and [facility] [place] [facility] Medical History TBI (traumatic brain injury) (Acute) Alzheimer disease (Chronic) Hypothyroid (Chronic) Surgical History Status post arthroscopy Family History Mother No problems noted. Social History household members: caregiver lives independently: No (Lyssa) Family History Mother No problems noted. Social History household members: caregiver lives independently: No (Lyssa) Procedures Laceration Repair Laceration 1: Site: scalp Size (cm): 0.5 Description: linear Depth: simple, single layer Pre-repair: irrigated extensively Skin layer closed with: jocelin (One) Course Orders Ordered: ED Orders 06/06/19 17:53 CT head/brain wo con Stat Vital Signs - 8 hr 06/06/19 17:19 06/06/19 18:17 06/06/19 19:00 Temperature 98.1 F Pulse Rate 71 85 82 Respiratory Rate 16 17 17 Blood Pressure [Right Ankle] 129/70 125/59 L 114/78 Pulse Oximetry 90 L 100 99 06/06/19 20:00 Temperature Pulse Rate 74 Respiratory Rate 16 Blood Pressure [Right Ankle] 134/66 Pulse Oximetry 96 MDM - Fall Imaging Data CT scan - head: Radiologist's impression: Gillian Law 69 F [address] [address] [address] Scan Report Signed Patient: Gillian Law [facility]#: [id number] : 8Acct:[id number] Age/Sex: 69 / FDate of Service: 06/06/19 Loc: ED Accession Number: [id number] Procedure: CT head/brain wo con Ordering Provider: Sugey Ugarte D.O. PROCEDURE: CT HEAD/BRAIN WO CON INDICATIONS: head injury, small laceration TECHNIQUE: Noncontrast 4.5 mm thick angled axial sections acquired from the foramen magnum to the vertex, with coronal and sagittal reformats. For radiation dose reduction, the following was used: automated exposure control, adjustment of mA and/or kV according to patient size. COMPARISON: [facility], CT, HEAD WITHOUT CONTRAST, 11/03/2017, 3:39. FINDINGS: Image quality: Excellent. CSF spaces: Basal cisterns are patent. No extra-axial fluid collections. The ventricles are symmetric in size and shape. Brain: No intracranial bleeds or masses. There is cerebral volume loss for age, with resultant ventricular and sulcal prominence. There are periventricular and deep white matter chronic small vessel ischemic changes. There is intracranial internal carotid artery atherosclerosis. Skull and face: A mild scalp laceration can be seen posteriorly. Calvarium and visualized facial bones appear intact, without suspicious lesions. Sinuses: Visualized sinuses and mastoids are clear. IMPRESSION: No acute intracranial process is seen. Small posterior scalp laceration. Note is made of age-appropriate brain parenchymal volume loss and chronic small vessel ischemic changes. Dictated by: Shahram Gaines M.D. on 06/06/2019 at 17:28 Approved by: Shahram Gaines M.D. on 06/06/2019 at 17:29 [facility] Narrative Medical decision making narrative: Patient is reportedly at her baseline per EMS. Her head CT was unremarkable. She was moving all 4 extremities without apparent discomfort. Laceration was closed with 1 staple. Instructions were given with regard to care and follow-up. Patient was discharged back to her care facility. Discharge Plan Departure Patient Disposition: Home Clinical Impression: CHI (closed head injury) Qualifiers: Encounter type: initial encounter Qualified Code(s): S09.90XA - Unspecified injury of head, initial encounter Fall Qualifiers: Encounter type: initial encounter Qualified Code(s): W19.XXXA - Unspecified fall, initial encounter Laceration of scalp Qualifiers: Encounter type: initial encounter Qualified Code(s): S01.01XA - Laceration without foreign body of scalp, initial encounter Discharge Date/Time: 06/06/19 20:23 Interventions: ED Discharge Assessment Last Done: 06/06/19 20:21 Instructions: How to Prevent Falls Activity Restrictions/Additional Instructions: Gillian does have 1 staple in the back of her head. This does need to be removed in 10 days. Be careful with combing her hair. She can wash her hair like normal. Call her primary provider for a follow-up and to remove the staple. Return to the emergency department for any new symptoms Prescriptions: No Action acetaminophen 325 mg tablet 650 mg PO Q4H PRN (Reason: pain) Qty: 90 RF: 0 vitamin B complex [B Complex-Vitamin B12] tablet 1 tab PO DAILY Qty: 31 RF: 3 levothyroxine 112 mcg Tablet 112 mcg PO DAILY RF: 0 omega 4-zbp-sca-fish oil [Fish Oil] 1,000 mg (120 mg-180 mg) Capsule 1,000 mg PO DAILY RF: 0 melatonin 3 mg tablet 6 mg PO BEDTIME RF: 0 cholecalciferol (vitamin D3) [Vitamin D3] 2,000 unit tablet 2,000 unit PO DAILY RF: 0 quetiapine 25 mg Tablet 12.5 mg PO BEDTIME Qty: 30 RF: 0 sennosides [senna] 8.6 mg Tablet 17.2 mg PO BEDTIME Qty: 30 RF: 0 ibuprofen 600 mg Tablet 600 mg PO Q6HR PRN (Reason: As Needed For Fever/Mild Pain) Qty: 30 RF: 0 loperamide 2 mg Capsule 2 mg PO PRN MDD 8 caps PRN (Reason: loose stool) RF: 0 lorazepam 0.5 MG tablet 0.5 mg PO Q8H PRN (Reason: Agitation) RF: 0 docusate sodium 100 mg capsule 100 mg PO DAILY RF: 0 Referrals: Shelia Petersen ARNP [Primary Care Provider] -
[2019-06-06 18:17] VITALS: BP 125/59; PULSE 85; RESP 17; O2SAT 100
[2019-06-06 19:00] VITALS: BP 114/78; PULSE 82; RESP 17; O2SAT 99
[2019-06-06 20:00] VITALS: BP 134/66; PULSE 74; RESP 16; O2SAT 96
== END 2019-06-06 20:23 | disposition home or self-care (01) ==
PROVIDERS: Emergency Provider Emergency Medicine; PCP Nurse Practitioner Family
DX: S01.01XA Laceration without foreign body of scalp, initial encounter (principal); W19.XXXA Unspecified fall, initial encounter; S09.90XA Unspecified injury of head, initial encounter
CPT/HCPCS: 12001; 70450; 99282; 99283; 99284

== ENCOUNTER 2019-06-22 13:06 | Emergency (ER) | payer MEDICARE, SELFPAY ==
[2018-11-15 17:00] VITALS: BMI 25.0
[2019-06-22 13:35] VITALS: PULSE 86; RESP 18
--- NOTE | 2019-06-22 14:15 | ED.RECABL ---
HPI - Recheck/Abnormal Lab/Rx <Sugey Kelley NETBACKUP ENGINEER-BC - Last Filed: 06/22/19 14:45> General Chief Complaint: Recheck/Abnormal Lab/Rx Stated Complaint: Staple removal Time Seen by Provider: 06/22/19 13:19 Source: patient, RN notes reviewed and old records reviewed Mode of arrival: wheelchair Limitations: altered mental status History of Present Illness HPI narrative: The patient is a 69-year-old female with history of dementia who resides at [facility] presents with caregiver for chief complaint of needing a staple removal. She was evaluated for a closed head injury at this facility on 06/06 and was given 1 staple. The caregivers deny any fevers nausea vomiting or diarrhea. They state the incision looks good. The present requesting her staple to be removed. Related Data Home Medications Medication Instructions Recorded Confirmed cholecalciferol (vitamin D3) 2,000 unit PO DAILY 11/15/18 06/06/19 [Vitamin D3] levothyroxine 112 mcg PO DAILY 11/15/18 06/06/19 melatonin 6 mg PO BEDTIME 11/15/18 06/06/19 omega 5-iax-qkp-fish oil [Fish Oil] 1,000 mg PO DAILY 11/15/18 06/06/19 docusate sodium 100 mg PO DAILY 06/06/19 06/06/19 loperamide 2 mg PO PRN PRN MDD 8 caps 06/06/19 06/06/19 lorazepam 0.5 mg PO Q8H PRN 06/06/19 06/06/19 Previous Rx's Medication Instructions Recorded acetaminophen 325 mg tablet 650 mg PO Q4H PRN #90 tab 09/15/18 ibuprofen 600 mg PO Q6HR PRN #30 tab 11/19/18 quetiapine 12.5 mg PO BEDTIME #30 tab 11/19/18 sennosides [senna] 17.2 mg PO BEDTIME #30 tab 11/19/18 vitamin B complex tablet 1 tab PO DAILY #31 tab 02/16/19 Allergies Allergy/AdvReac Type Severity Reaction Status Date / Time Penicillins [PENICILLINS] Allergy Severe hives, Verified 06/22/19 13:56 vomiting Sulfa (Sulfonamide Allergy Intermediate Hives Verified 06/22/19 13:56 Antibiotics) [SULFA (SULFONAMIDE ANTIBIOTICS)] Review of Systems <GERONIMO Mills - Last Filed: 06/22/19 14:45> Review of Systems ROS Unobtainable: Unobtainable due to mental status/LOC PFSH <GERONIMO Mills - Last Filed: 06/22/19 14:45> Medical History TBI (traumatic brain injury) (Acute) Alzheimer disease (Chronic) Hypothyroid (Chronic) Surgical History Status post arthroscopy Family History (System 06/22/19 @ 13:56 by Ligia Sauer) Mother No problems noted. Social History (System 06/22/19 @ 13:56 by Ligia Sauer) household members: caregiver lives independently: No (Lyssa) Family History Mother No problems noted. Social History household members: caregiver lives independently: No (Lyssa) Exam <GERONIMO Mills - Last Filed: 06/22/19 14:45> Narrative Exam Narrative: GENERAL: Elderly chronically ill-appearing female sitting in a wheelchair in no acute distress HEAD: Atraumatic. Normocephalic. No temporal or scalp tenderness. EYES: Pupils equal round and reactive. Extraocular motions intact. No scleral icterus. No injection or drainage. NECK: Trachea midline. No JVD or lymphadenopathy. Supple, nontender, no meningeal signs. CARDIOVASCULAR: Regular rate and rhythm without murmurs, gallops, or rubs. RESPIRATORY: No cough. No increased respiratory effort. No accessory muscle use. EXTREMITIES: Using all extremities equally. NEURO: Alert. SKIN: 0.5 cm laceration on back of scalp closed with [address] No surrounding erythema. No drainage noted. Wound is closed and is well approximated. Initial Vital Signs Initial Vital Signs: Vital Signs Pulse Rate 86 06/22/19 13:35 Respiratory Rate 18 06/22/19 13:35 <Sugey Ugarte DO - Last Filed: 06/22/19 20:02> Initial Vital Signs Initial Vital Signs: Vital Signs Pulse Rate 86 06/22/19 13:35 Respiratory Rate 18 06/22/19 13:35 Course <Sugey KelleyGERONIMO - Last Filed: 06/22/19 14:45> Vital Signs - 8 hr 06/22/19 13:35 Pulse Rate 86 Respiratory Rate 18 <Sugey Shruti HinsoncherrieDO - Last Filed: 06/22/19 20:02> Vital Signs - 8 hr 06/22/19 13:35 Pulse Rate 86 Respiratory Rate 18 MDM - Recheck/Abnormal Lab/Rx <GERONIMO Mills - Last Filed: 06/22/19 14:45> MDM Narrative Medical decision making narrative: The patient is a 69-year-old female who presents for chief complaint of wanting a staple removal. Stable site looks good with no signs or symptoms of infection. Was removed by Thanh MARIN. Discussed with caregiver to come back for any acute concerns. Discussed monitor for signs and symptoms of infection such as redness swelling pus etc. No questions or concerns from caregiver on discharge. Patient back to [facility] with caregiver. Discharge Plan Departure Patient Disposition: Home Clinical Impression: Removal of staple Discharge Date/Time: 06/22/19 13:37 Interventions: ED Discharge Assessment Last Done: 06/22/19 13:37 Instructions: DI for Laceration Repair -- Rachael Activity Restrictions/Additional Instructions: Please continue to watch for signs and symptoms of infection such as redness pus swelling. I suggest keeping the area clean and dry. Use topical antibiotic cream as needed and able. Please follow up with primary care provider. Please come back to the ER for any acute concerns. Prescriptions: No Action acetaminophen 325 mg tablet 650 mg PO Q4H PRN (Reason: pain) Qty: 90 RF: 0 vitamin B complex [B Complex-Vitamin B12] tablet 1 tab PO DAILY Qty: 31 RF: 3 levothyroxine 112 mcg Tablet 112 mcg PO DAILY RF: 0 omega 9-twn-wir-fish oil [Fish Oil] 1,000 mg (120 mg-180 mg) Capsule 1,000 mg PO DAILY RF: 0 melatonin 3 mg tablet 6 mg PO BEDTIME RF: 0 cholecalciferol (vitamin D3) [Vitamin D3] 2,000 unit tablet 2,000 unit PO DAILY RF: 0 quetiapine 25 mg Tablet 12.5 mg PO BEDTIME Qty: 30 RF: 0 sennosides [senna] 8.6 mg Tablet 17.2 mg PO BEDTIME Qty: 30 RF: 0 ibuprofen 600 mg Tablet 600 mg PO Q6HR PRN (Reason: As Needed For Fever/Mild Pain) Qty: 30 RF: 0 loperamide 2 mg Capsule 2 mg PO PRN MDD 8 caps PRN (Reason: loose stool) RF: 0 lorazepam 0.5 MG tablet 0.5 mg PO Q8H PRN (Reason: Agitation) RF: 0 docusate sodium 100 mg capsule 100 mg PO DAILY RF: 0 <Sugey Ugarte DO - Last Filed: 06/22/19 20:02> Cosign ED Attending Cosignature Attestation: I was immediately available in the department for consultation. This documentation has been reviewed and I agree with assessment and plan. Supervised by Sugey Ugarte DO
== END 2019-06-22 13:37 | disposition home or self-care (01) ==
PROVIDERS: Emergency Provider Nurse Practitioner Family
DX: Z48.02 Encounter for removal of sutures (principal)
CPT/HCPCS: 99281; 99282

== ENCOUNTER 2019-08-26 15:54 | Emergency (ER) | payer MEDICARE, SELFPAY ==
[2018-11-15 17:00] VITALS: BMI 25.0
--- NOTE | 2019-08-26 16:01 | ED_ITS ---
HPI - General Adult General Chief complaint: Fall Stated complaint: Ground Level Fall Time Seen by Provider: 08/26/19 15:59 Source: EMS Mode of arrival: EMS Limitations: other (Dementia) History of Present Illness HPI narrative: Patient's into the emergency department by EMS after supported that she fell at her care facility. She is not on anticoagulation. Supported by EMS the patient has baseline mental status. She does have a history of Alzheimer's dementia. He is nonverbal. Does have a laceration to her chin. Arrive not on a backboard and a cervical however Related Data Home Medications Medication Instructions Recorded Confirmed cholecalciferol (vitamin D3) 2,000 unit PO DAILY 11/15/18 08/26/19 [Vitamin D3] levothyroxine 112 mcg PO DAILY 11/15/18 08/26/19 melatonin 6 mg PO BEDTIME 11/15/18 08/26/19 omega 7-yny-hyv-fish oil [Fish Oil] 1,000 mg PO DAILY 11/15/18 08/26/19 docusate sodium 200 mg PO BID 06/06/19 08/26/19 loperamide 2 mg PO PRN PRN MDD 8 caps 06/06/19 08/26/19 bisacodyl 10 mg MD DAILY PRN 08/26/19 08/26/19 Previous Rx's Medication Instructions Recorded acetaminophen 325 mg tablet 650 mg PO Q4H PRN #90 tab 09/15/18 ibuprofen 600 mg PO Q6HR PRN #30 tab 11/19/18 sennosides [senna] 17.2 mg PO BEDTIME #30 tab 11/19/18 vitamin B complex 1 tab PO DAILY #31 tab 02/16/19 Allergies Allergy/AdvReac Type Severity Reaction Status Date / Time Penicillins [PENICILLINS] Allergy Severe hives, Verified 06/22/19 13:56 vomiting Sulfa (Sulfonamide Allergy Intermediate Hives Verified 06/22/19 13:56 Antibiotics) [SULFA (SULFONAMIDE ANTIBIOTICS)] Review of Systems Review of Systems ROS Unobtainable: Unobtainable due to mental condition [facility] Medical History Alzheimer disease (Chronic) Hypothyroid (Chronic) TBI (traumatic brain injury) (Acute) Social History household members: caregiver lives independently: No ([place]) Smoking Status: Unknown if ever smoked Exam Initial Vital Signs Initial Vital Signs: Vital Signs Temperature 97.8 F 08/26/19 16:19 Pulse Rate 77 08/26/19 16:19 Respiratory Rate 20 08/26/19 16:19 Blood Pressure 115/79 08/26/19 16:19 Pulse Oximetry 97 08/26/19 16:19 Const General: comfortable and well developed Orientation: awake Other: Nonverbal HENMT Head: normal to inspection and normocephalic Nose: external nose normal Teeth and gingiva: dentition normal Resp Effort & Inspection: normal respiratory effort Auscultation: clear to auscultation bilaterally Cardio Rate: regular rate Rhythm: regular rhythm Skin Other: 2 in laceration to the chin Neuro Other: Nonverbal, moves all 4 extremities spontaneously, baseline per EMS report Extrem Other: Moves all 4 extremities without apparent pain Psych Appearance: grossly normal and well kempt Procedures Laceration Repair Laceration 1: Site: face Size (cm): 2 Description: linear Depth: simple, single layer Skin layer closed with: other (Closed with Dermabond and Steri-Strips) Course Orders Ordered: ED Orders 08/26/19 16:06 CT cervical spine wo con Stat CT facial bones wo con Stat CT head/brain wo con Stat Vital Signs Vital signs: Vital Signs - 8 hr 08/26/19 16:19 08/26/19 16:57 Temperature 97.8 F Pulse Rate 77 77 Respiratory Rate 20 16 Blood Pressure 115/79 Blood Pressure [Left Arm] 108/90 Pulse Oximetry 97 100 Medical Decision Making Imaging Data CT scan - head: Radiologist's impression: [place] [address] CT Scan Report Signed Patient: Gillian Law [facility]#: [id number] : 8Acct:[id number] Age/Sex: 69 / FDate of Service: 08/26/19 Loc: ED Accession Number: [id number] Procedure: CT head/brain wo con Ordering Provider: Boone Calhoun D.O. PROCEDURE: CT HEAD/BRAIN WO CON INDICATIONS: Fall, not on blood thinners TECHNIQUE: Noncontrast 4.5 mm thick angled axial sections acquired from the foramen magnum to the vertex, with coronal and sagittal reformats. For radiation dose reduction, the following was used: automated exposure control, adjustment of mA and/or kV according to patient size. COMPARISON: [facility], CT, CT HEAD/BRAIN WO CON, 06/06/2019, 18:00. FINDINGS: Image quality: Severely degraded by patient motion artifact. CSF spaces: Basal cisterns are patent. No extra-axial fluid collections. The ventricles are symmetric in size and shape. Brain: No intracranial bleeds or masses. There is cerebral volume loss for age, with resultant ventricular and sulcal prominence. There are periventricular and deep white matter chronic small vessel ischemic changes. There is intracranial internal carotid artery atherosclerosis. Skull and face: Calvarium and visualized facial bones appear intact, without suspicious lesions. Sinuses: Visualized sinuses and mastoids are clear. IMPRESSION: No acute intracranial disease process within limitations related to motion artifact. Dictated by: Violeta Noyola MD, PhD on 08/26/2019 at 16:34 Approved by: Violeta Noyola MD, PhD on 08/26/2019 at 16:36 CT face: Radiologist's impression: 1 Diagnostics DATE TYPE STATUS AUTHOR Hx 08/26/19 16:06 Violeta Noyola 08/26/19 16:06 Jonathon Reinoso 08/26/19 16:06 Violeta Noyola 06/06/19 17:53 Shahram Gaines 11/16/18 00:00 Savage Yusuf 11/15/18 12:24 11/15/18 12:24 11/15/18 09:39 Baudilio Porras 11/14/18 00:00 Maxi Jean Gillian Law, F0 1950 DEP ER, [facility] ED 54.431kg Fall Search Chart No Data to Display hives, vomiting Hives ONSET 12/10/16 01/11/16 Today 16:57 Document Auto-Saved Gillian Law F [address] [address] [address] Scan Report Signed Patient: Gillian Law#: [id number] : 8Acct:[id number] Age/Sex: 69 / FDate of Service: 08/26/19 Loc: ED Accession Number: [id number] Procedure: CT facial bones wo con Ordering Provider: Boone Calhoun D.O. PROCEDURE: CT FACIAL BONES WO CON INDICATIONS: Fall TECHNIQUE: Noncontrast 2.5 mm thick axial images acquired from the mandible through the frontal sinuses, with coronal and sagittal reformatting. For radiation dose reduction, the following was used: automated exposure control, adjustment of mA and/or kV according to patient size. COMPARISON: None. FINDINGS: Image quality: Fair. Significant patient motion in the area of the mandible. Bones and teeth: Orbital fuentes are intact. Sinus fuentes show no fracture or deformity. Nasal bones and septum are intact. Mandibular motion results in inability to exclude mandibular fractures. Zygomatic arches are intact. Pterygoid plates are intact. Visualized portions of the skull base and auditory canals are intact. Sinuses: Paranasal sinuses are aerated, without fluid levels, mucosal thickening, or mucoceles. Mastoid air cells are aerated. Soft tissues: No edema, masses, or fluid collections. No enlarged lymph nodes. No soft tissue lacerations or debris. Vascular: Visualized vascular structures appear normal in the absence of contrast. Bony vascular foramina and canals are intact. IMPRESSION: 1. No evidence of acute facial bone fracture. 2. Unable to evaluate the mandible secondary to patient motion artifact. Consider repeat imaging if suspect mandibular fractures. Dictated by: Jonathon Reinoso M.D. on 08/26/2019 at 16:35 Approved by: Jonathon Reinoso M.D. on 08/26/2019 at 16:38 CT cervical spine: Radiologist's impression: [place] [address] CT Scan Report Signed Patient: Gillian Law [facility]#: [id number] : 8Acct:[id number] Age/Sex: 69 / FDate of Service: 08/26/19 Loc: ED Accession Number: [id number] Procedure: CT cervical spine wo con Ordering Provider: Boone Calhoun D.O. PROCEDURE: CT CERVICAL SPINE WO CON INDICATIONS: Fall TECHNIQUE: Noncontrast 3 mm thick sections acquired from the skull base to the T4 level. Sagittal and coronal reformats were then constructed. For radiation dose reduction, the following was used: automated exposure control, adjustment of mA and/or kV according to patient size. COMPARISON: None. FINDINGS: Image quality: Severely degraded by patient motion artifact. Spine degenerative disc disease and facet arthropathy. Bones: No fractures or dislocations. Visualized superior ribs are intact. Soft tissues: Prevertebral soft tissues are normal in thickness. No paravertebral hematomas. No apical pneumothoraces. IMPRESSION: No fracture within the limitations related to motion artifact. No acute osseous lesion within limitations related to motion artifact. If symptoms and/or clinical suspicion for pathology persists, evaluation with repeat CT scan or MRI may be helpful for further assessment. Dictated by: Violeta Noyola MD, PhD on 08/26/2019 at 16:36 Approved by: Violeta Noyola MD, PhD on 08/26/2019 at 16:45 [facility] Narrative Medical decision making narrative: Laceration as described above. No fractures noted on CT scans. C-collar is placed in the emergency department subsequently removed. Wound was closed with Dermabond and Steri-Strips. I feel that this would be the best way to close the given her mental status did not feel that she would tolerate sutures. Hold on further workup for now. Patient is a DNR with comfort measures only. Will discharge home. Discharge Plan Departure Patient Disposition: Home Clinical Impression: Laceration of chin Qualifiers: Encounter type: initial encounter Qualified Code(s): S01.81XA - Laceration without foreign body of other part of head, initial encounter Fall Qualifiers: Encounter type: initial encounter Qualified Code(s): W19.XXXA - Unspecified fall, initial encounter Contusion of face Qualifiers: Encounter type: initial encounter Qualified Code(s): S00.83XA - Contusion of other part of head, initial encounter Discharge Date/Time: 08/26/19 17:58 Instructions: How to Prevent Falls Activity Restrictions/Additional Instructions: Keep the Steri-Strips on the chin for as long as possible. They will eventually fall off on their own. She can still shower like normal. Contact her primary doctor to let her know that she was here in the emergency department. She can return to the emergency department at any point for new or worsening symptoms Prescriptions: No Action acetaminophen 325 mg tablet 650 mg PO Q4H PRN (Reason: pain) Qty: 90 RF: 0 vitamin B complex [B Complex-Vitamin B12] tablet 1 tab PO DAILY Qty: 31 RF: 3 levothyroxine 112 mcg Tablet 112 mcg PO DAILY RF: 0 omega 6-awe-afm-fish oil [Fish Oil] 1,000 mg (120 mg-180 mg) Capsule 1,000 mg PO DAILY RF: 0 melatonin 3 mg tablet 6 mg PO BEDTIME RF: 0 cholecalciferol (vitamin D3) [Vitamin D3] 2,000 unit tablet 2,000 unit PO DAILY RF: 0 sennosides [senna] 8.6 mg Tablet 17.2 mg PO BEDTIME Qty: 30 RF: 0 ibuprofen 600 mg Tablet 600 mg PO Q6HR PRN (Reason: As Needed For Fever/Mild Pain) Qty: 30 RF: 0 loperamide 2 mg Capsule 2 mg PO PRN MDD 8 caps PRN (Reason: loose stool) RF: 0 docusate sodium 100 mg capsule 200 mg PO BID RF: 0 bisacodyl 10 mg Suppository 10 mg MD DAILY PRN (Reason: Constipation) RF: 0 Referrals: Shelia Petersen ARNP [Primary Care Provider] -
--- NOTE | 2019-08-26 16:06 | DI.CT.S_ITS ---
PROCEDURE: CT HEAD/BRAIN WO CON INDICATIONS: Fall, not on blood thinners TECHNIQUE: Noncontrast 4.5 mm thick angled axial sections acquired from the foramen magnum to the vertex, with coronal and sagittal reformats. For radiation dose reduction, the following was used: automated exposure control, adjustment of mA and/or kV according to patient size. COMPARISON: [facility], CT, CT HEAD/BRAIN WO CON, 06/06/2019, 18:00. FINDINGS: Image quality: Severely degraded by patient motion artifact. CSF spaces: Basal cisterns are patent. No extra-axial fluid collections. The ventricles are symmetric in size and shape. Brain: No intracranial bleeds or masses. There is cerebral volume loss for age, with resultant ventricular and sulcal prominence. There are periventricular and deep white matter chronic small vessel ischemic changes. There is intracranial internal carotid artery atherosclerosis. Skull and face: Calvarium and visualized facial bones appear intact, without suspicious lesions. Sinuses: Visualized sinuses and mastoids are clear. IMPRESSION: No acute intracranial disease process within limitations related to motion artifact. Dictated by: Violeta Noyola MD, PhD on 08/26/2019 at 16:34 Approved by: Violeta Noyola MD, PhD on 08/26/2019 at 16:36
--- NOTE | 2019-08-26 16:06 | DI.CT.S_ITS ---
PROCEDURE: CT CERVICAL SPINE WO CON INDICATIONS: Fall TECHNIQUE: Noncontrast 3 mm thick sections acquired from the skull base to the T4 level. Sagittal and coronal reformats were then constructed. For radiation dose reduction, the following was used: automated exposure control, adjustment of mA and/or kV according to patient size. COMPARISON: None. FINDINGS: Image quality: Severely degraded by patient motion artifact. Spine degenerative disc disease and facet arthropathy. Bones: No fractures or dislocations. Visualized superior ribs are intact. Soft tissues: Prevertebral soft tissues are normal in thickness. No paravertebral hematomas. No apical pneumothoraces. IMPRESSION: No fracture within the limitations related to motion artifact. No acute osseous lesion within limitations related to motion artifact. If symptoms and/or clinical suspicion for pathology persists, evaluation with repeat CT scan or MRI may be helpful for further assessment. Dictated by: Violeta Noyola MD, PhD on 08/26/2019 at 16:36 Approved by: Violeta Noyola MD, PhD on 08/26/2019 at 16:45
--- NOTE | 2019-08-26 16:06 | DI.CT.S_ITS ---
PROCEDURE: CT FACIAL BONES WO CON INDICATIONS: Fall TECHNIQUE: Noncontrast 2.5 mm thick axial images acquired from the mandible through the frontal sinuses, with coronal and sagittal reformatting. For radiation dose reduction, the following was used: automated exposure control, adjustment of mA and/or kV according to patient size. COMPARISON: None. FINDINGS: Image quality: Fair. Significant patient motion in the area of the mandible. Bones and teeth: Orbital fuentes are intact. Sinus fuentes show no fracture or deformity. Nasal bones and septum are intact. Mandibular motion results in inability to exclude mandibular fractures. Zygomatic arches are intact. Pterygoid plates are intact. Visualized portions of the skull base and auditory canals are intact. Sinuses: Paranasal sinuses are aerated, without fluid levels, mucosal thickening, or mucoceles. Mastoid air cells are aerated. Soft tissues: No edema, masses, or fluid collections. No enlarged lymph nodes. No soft tissue lacerations or debris. Vascular: Visualized vascular structures appear normal in the absence of contrast. Bony vascular foramina and canals are intact. IMPRESSION: 1. No evidence of acute facial bone fracture. 2. Unable to evaluate the mandible secondary to patient motion artifact. Consider repeat imaging if suspect mandibular fractures. Dictated by: Jonathon Reinoso M.D. on 08/26/2019 at 16:35 Approved by: Jonathon Reinoso M.D. on 08/26/2019 at 16:38
[2019-08-26 16:19] VITALS: BP 115/79; PULSE 77; RESP 20; TEMP 36.6; O2SAT 97
[2019-08-26 16:57] VITALS: BP 108/90; PULSE 77; RESP 16; O2SAT 100
== END 2019-08-26 17:58 | disposition home or self-care (01) ==
PROVIDERS: Emergency Provider Emergency Medicine; PCP Nurse Practitioner Family
DX: S01.81XA Laceration without foreign body of other part of head, initial encounter (principal); W19.XXXA Unspecified fall, initial encounter
CPT/HCPCS: 70450; 70486; 72125; 99283; 99284

== ENCOUNTER → 2019-09-05 07:34 | Outpatient (ROUT) | payer MEDICARE, SELFPAY ==
[2018-11-15 17:00] VITALS: BMI 25.0
[2019-09-05 07:50] LABS: Hematocrit 40.5 % (36-46); Hemoglobin 13.4 g/dL (12.0-16.0); Mean Corpuscular Hemoglobin 28.2 PG (26-34); Mean Corpuscular Volume 85.2 fL (80-100); Platelet Count 368 X10^3/uL (150-400); Red Blood Cell Count 4.76 X10^6/uL (4.0-5.2); Red Cell Distribution Width 14.7 % (11.6-14.8); White Blood Cell Count 7.7 X10^3/uL (4.5-11.0)
[2019-09-05 08:02] LABS: Alanine Aminotransferase 7 IU/L (9-52); Albumin Globulin Ratio 1.2 (1.0-2.8); Alkaline Phosphatase 85 U/L (38-126); Aspartate Aminotransferase 25 IU/L (14-36); BUN Creatinine Ratio 16.7 (6-22); Bilirubin Total 0.5 mg/dL (0.2-1.3); Blood Urea Nitrogen 10 mg/dL (7-17); Calcium 9.4 mg/dL (8.4-10.2); Carbon Dioxide 27 mmol/L (22-32); Chloride 105 mmol/L (98-107); Estimated Glomerular Filt Rate > 60.0 mL/min (>60); Globulin 3.4 g/dL (1.7-4.1); Glucose 136 mg/dL (80-110); HEMOLYSIS < 15 (0-50); Sodium 142 mmol/L (137-145); Total Protein 7.4 g/dL (6.3-8.2)
[2019-09-05 08:51] LABS: Vitamin B12 298 pg/mL (239-931)
== END ==
PROVIDERS: PCP Nurse Practitioner Family; Visit Provider Registered Nurse
DX: R29.6 Repeated falls (principal); Z79.899 Other long term (current) drug therapy
CPT/HCPCS: 36415; 80053; 82607; 84443; 85027

== ENCOUNTER 2020-05-24 22:01 | Emergency (ER) | payer MEDICARE, MEDICAID, SELFPAY ==
[2018-11-15 17:00] VITALS: BMI 25.0
[2020-05-24 21:57] VITALS: BP 131/51; PULSE 78; RESP 16; TEMP 36.5; O2SAT 98
--- NOTE | 2020-05-24 22:17 | ED.GENADULT ---
HPI - General Adult General Chief complaint: Extremity Injury, Lower Stated complaint: Fall with hip pain Time Seen by Provider: 05/24/20 22:17 Source: EMS Mode of arrival: EMS Limitations: altered mental status History of Present Illness HPI narrative: Patient is at her baseline mental status. Was reported that earlier today the patient fell at the nursing facility where she lived. EMS was initially called out however patient was able to stand and ambulate is reporting just minimal pain in her right hip. She was able to transition. She was not brought to the emergency department. They were then called out a 2nd time when patient was getting into bed with help and was starting to complain of additional right-sided hip pain. Has no reports the patient hit her head. Patient not on anticoagulation. Patient unable to provide any HPI or ROS given her mental status Related Data Home Medications Medication Instructions Recorded Confirmed cholecalciferol (vitamin D3) 2,000 unit PO DAILY 11/15/18 08/26/19 [Vitamin D3] levothyroxine 112 mcg PO DAILY 11/15/18 08/26/19 melatonin 6 mg PO BEDTIME 11/15/18 08/26/19 omega 8-lju-ive-fish oil [Fish Oil] 1,000 mg PO DAILY 11/15/18 08/26/19 docusate sodium 200 mg PO BID 06/06/19 08/26/19 loperamide 2 mg PO PRN PRN MDD 8 caps 06/06/19 08/26/19 bisacodyl 10 mg [place] DAILY PRN 08/26/19 08/26/19 Previous Rx's Medication Instructions Recorded acetaminophen 325 mg tablet 650 mg PO Q4H PRN #90 tab 09/15/18 ibuprofen 600 mg PO Q6HR PRN #30 tab 11/19/18 sennosides [senna] 17.2 mg PO BEDTIME #30 tab 11/19/18 vitamin B complex 1 tab PO DAILY #31 tab 02/16/19 Allergies Allergy/AdvReac Type Severity Reaction Status Date / Time Penicillins [PENICILLINS] Allergy Severe hives, Verified 06/22/19 13:56 vomiting Sulfa (Sulfonamide Allergy Intermediate Hives Verified 06/22/19 13:56 Antibiotics) [SULFA (SULFONAMIDE ANTIBIOTICS)] Review of Systems Review of Systems ROS Unobtainable: Unobtainable due to mental status/LOC Patient History Medical History Alzheimer disease (Chronic) Hypothyroid (Chronic) TBI (traumatic brain injury) (Acute) Surgical History Status post arthroscopy Family History Mother No problems noted. Social History household members: caregiver lives independently: No ([place]) Smoking Status: Unknown if ever smoked Smoking Status: Unknown if ever smoked alcohol intake frequency: other Substance Use Type: unknown Exam Initial Vital Signs Initial Vital Signs: Vital Signs Temperature 97.7 F 05/24/20 21:57 Pulse Rate 78 05/24/20 21:57 Respiratory Rate 16 05/24/20 21:57 Blood Pressure 131/51 L 05/24/20 21:57 Pulse Oximetry 98 05/24/20 21:57 Const Limitations: other limitations (Alzheimer's disease) HENMT Head: normal to inspection and normocephalic Skin Lesions: no lesions Rashes: no rashes Extrem Other: Apparent pain with movement of the right hip. Psych Appearance: well kempt Course Orders Ordered: ED Orders 05/24/20 22:19 XR hip w pel if done RT 2V Stat Vital Signs Vital signs: Vital Signs - 8 hr 05/24/20 21:57 05/25/20 00:08 Temperature 97.7 F Pulse Rate 78 17 L Respiratory Rate 16 16 Blood Pressure 131/51 L 107/78 Pulse Oximetry 98 93 Medical Decision Making Imaging Data Extremity x-ray #1: Attestation: I personally reviewed and interpreted this imaging study as follows: My Impression: Right superior pubic rami fracture MDM Narrative Medical decision making narrative: Baseline mental status. No other signs of trauma on exam. Right superior pubic rami fracture. Patient able to weight bear as tolerated. Has Tylenol artery ordered. Reluctant to give stronger medications given her propensity for falling will discharge back to care facility. Discharge Plan Departure Patient Disposition: Home Clinical Impression: Fracture of superior ramus of right pubis Qualifiers: Encounter type: initial encounter Fracture type: closed Qualified Code(s): S32.511A - Fracture of superior rim of right pubis, initial encounter for closed fracture Discharge Date/Time: 05/25/20 00:10 Activity Restrictions/Additional Instructions: X-ray showed a right-sided superior pubic rami fracture. Patient can walk as tolerated. No restrictions on activities. She can continue the rest of her medications as directed Prescriptions: No Action acetaminophen 325 mg tablet 650 mg PO Q4H PRN (Reason: pain) Qty: 90 RF: 0 vitamin B complex [B Complex-Vitamin B12] tablet 1 tab PO DAILY Qty: 31 RF: 3 levothyroxine 112 mcg Tablet 112 mcg PO DAILY RF: 0 omega 4-nye-duh-fish oil [Fish Oil] 1,000 mg (120 mg-180 mg) Capsule 1,000 mg PO DAILY RF: 0 melatonin 3 mg tablet 6 mg PO BEDTIME RF: 0 cholecalciferol (vitamin D3) [Vitamin D3] 2,000 unit tablet 2,000 unit PO DAILY RF: 0 sennosides [senna] 8.6 mg Tablet 17.2 mg PO BEDTIME Qty: 30 RF: 0 ibuprofen 600 mg Tablet 600 mg PO Q6HR PRN (Reason: As Needed For Fever/Mild Pain) Qty: 30 RF: 0 loperamide 2 mg Capsule 2 mg PO PRN MDD 8 caps PRN (Reason: loose stool) RF: 0 docusate sodium 100 mg capsule 200 mg PO BID RF: 0 bisacodyl 10 mg Suppository 10 mg [place] DAILY PRN (Reason: Constipation) RF: 0 Referrals: Shelia Petersen ARNP [Primary Care Provider] -
--- NOTE | 2020-05-24 22:19 | DI.RAD.S_ITS ---
PROCEDURE: XR HIP W PEL IF DONE RT 2V INDICATIONS: Fall with pain TECHNIQUE: 2 views of the hip were acquired. COMPARISON: [facility], CR, XR HIP W PEL IF DONE LT 2V, 11/16/2018, 11:33. FINDINGS: Bones: Diffuse osteopenia. Mildly displaced right superior pubic ramus fracture with likely nondisplaced right inferior pubic ramus fracture. Remainder of the visualized osseous structures appear intact. No suspicious bony lesions. The visualized pelvic ring appears intact. Soft tissues: No suspicious soft tissue calcifications or masses. IMPRESSION: Mildly displaced right superior pubic ramus fracture with likely nondisplaced right inferior pubic ramus fracture. Diffuse osteopenia. Dictated by: Sukumar Roa M.D. on 05/25/2020 at 7:49 Approved by: Sukumar Roa M.D. on 05/25/2020 at 7:51
[2020-05-25 00:08] VITALS: BP 107/78; PULSE 17; RESP 16; O2SAT 93
== END 2020-05-25 00:10 | disposition home or self-care (01) ==
PROVIDERS: Emergency Provider Emergency Medicine; PCP Nurse Practitioner Family
DX: S32.511A Fracture of superior rim of right pubis, initial encounter for closed fracture (principal); W19.XXXA Unspecified fall, initial encounter; R41.82 Altered mental status, unspecified
CPT/HCPCS: 73502; 99283

== ENCOUNTER → 2020-11-28 08:11 | Outpatient (ROUT) | payer MEDICARE, MEDICAID, SELFPAY ==
[2018-11-15 17:00] VITALS: BMI 25.0
[2020-11-28 08:59] LABS: Add Manual Diff / Slide Review NO; Basophils Absolute Auto 100 /uL (0-100); Basophils Percent Auto 1.4 % (0-2); Eosinophils Absolute Auto 100 /uL (0-450); Hematocrit 37.9 % (36-46); Hemoglobin 12.7 g/dL (12.0-16.0); Lymphocytes Absolute Auto 1700 /uL (1100-4500); Lymphocytes Percent Auto 25.2 % (25-40); Mean Corpuscular HGB Conc 33.5 % (30-36); Mean Corpuscular Hemoglobin 29.8 PG (26-34); Mean Corpuscular Volume 88.9 fL (80-100); Monocytes Absolute Auto 500 /uL (0-900); Monocytes Percent Auto 6.8 % (3-14); Neutrophils Absolute Auto 4400 /uL (1500-7000); Neutrophils Percent Auto 65.6 % (50-75); Platelet Count 236 X10^3/uL (150-400); Red Blood Cell Count 4.27 X10^6/uL (4.0-5.2); Red Cell Distribution Width 12.7 % (11.6-14.8); White Blood Cell Count 6.7 X10^3/uL (4.5-11.0)
[2020-11-28 09:33] LABS: Blood Urea Nitrogen 12 mg/dL (7-17); Calcium 9.2 mg/dL (8.4-10.2); Carbon Dioxide 27 mmol/L (22-32); Chloride 110 mmol/L (98-107); Estimated Glomerular Filt Rate > 60.0 mL/min (>60); Glucose 85 mg/dL (80-110); HEMOLYSIS 35 (0-50); Potassium 4.3 mmol/L (3.4-5.1); Sodium 139 mmol/L (137-145)
[2020-11-28 12:05] LABS: Thyroid Stimulating Hormone 5.53 uIU/mL (0.47-4.68)
== END ==
PROVIDERS: PCP Nurse Practitioner Family; Visit Provider Nurse Practitioner Family
DX: R63.4 Abnormal weight loss (principal)
CPT/HCPCS: 36415; 80048; 84443; 85025

== ENCOUNTER → 2021-07-24 07:49 | Outpatient (ROUT) | payer MEDICARE, MEDICAID, SELFPAY ==
[2018-11-15 17:00] VITALS: BMI 25.0
[2021-07-24 08:09] LABS: Add Manual Diff / Slide Review NO; Basophils Absolute Auto 100 /uL (0-100); Basophils Percent Auto 0.7 % (0-2); Eosinophils Absolute Auto 100 /uL (0-450); Eosinophils Percent Auto 1.8 % (2-4); Hematocrit 38.3 % (36-46); Lymphocytes Absolute Auto 2300 /uL (1100-4500); Lymphocytes Percent Auto 29.2 % (25-40); Mean Corpuscular HGB Conc 33.9 % (30-36); Mean Corpuscular Volume 88.6 fL (80-100); Monocytes Absolute Auto 800 /uL (0-900); Monocytes Percent Auto 9.8 % (3-14); Neutrophils Absolute Auto 4500 /uL (1500-7000); Neutrophils Percent Auto 58.5 % (50-75); Platelet Count 308 X10^3/uL (150-400); Red Blood Cell Count 4.32 X10^6/uL (4.0-5.2); Red Cell Distribution Width 12.7 % (11.6-14.8); White Blood Cell Count 7.7 X10^3/uL (4.5-11.0)
[2021-07-24 08:33] LABS: Alanine Aminotransferase 16 IU/L (<35); Albumin 3.6 g/dL (3.5-5.0); Albumin Globulin Ratio 1.1 (1.0-2.8); Alkaline Phosphatase 75 U/L (38-126); Aspartate Aminotransferase 23 IU/L (14-36); BUN Creatinine Ratio 26.7 (6-22); Bilirubin Total 0.4 mg/dL (0.2-1.3); Blood Urea Nitrogen 12 mg/dL (7-17); Calcium 9.4 mg/dL (8.4-10.2); Carbon Dioxide 27 mmol/L (22-32); Chloride 108 mmol/L (98-107); Estimated Glomerular Filt Rate > 60.0 mL/min (>60); Globulin 3.2 g/dL (1.7-4.1); Glucose 82 mg/dL (80-110); HEMOLYSIS < 15 (0-50); Potassium 3.8 mmol/L (3.4-5.1); Sodium 139 mmol/L (137-145); Total Protein 6.8 g/dL (6.3-8.2)
[2021-07-24 09:06] LABS: Thyroid Stimulating Hormone 6.16 uIU/mL (0.47-4.68)
== END ==
PROVIDERS: PCP Nurse Practitioner Family; Visit Provider Nurse Practitioner Family
DX: R62.7 Adult failure to thrive (principal); R63.4 Abnormal weight loss
CPT/HCPCS: 36415; 80053; 84443; 85025

== ENCOUNTER 2021-08-26 22:51 | Emergency (ER) | payer MEDICARE, MEDICAID, SELFPAY ==
[2018-11-15 17:00] VITALS: BMI 25.0
[2021-08-26 22:58] VITALS: BP 101/68; PULSE 65; RESP 17; TEMP 36.6; O2SAT 95
[2021-08-27] VITALS (14 sets, daily range): BP systolic 84–121; BP diastolic 51–61; PULSE 68–78; RESP 16–18; O2SAT 87–98
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
--- NOTE | 2021-08-27 09:13 | PC.NURSE ---
Dr Potter spoke with APS. Pt will be in ED to await MOVIE EDITOR consult and coordinate with facility a safety plan for a safe return. Resting in bed at this time. NAD.
--- NOTE | 2021-08-27 12:33 | PC.NURSE ---
Assisted patient with meal. Ate half of meal and drank fluids.
--- NOTE | 2021-08-27 13:26 | PC.NURSE ---
Checked brief to see if soiled. Brief was dry. Water offered. Reviewed vitals, covered with warm blanket then exited room. Patient continues to rest.
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
--- NOTE | 2021-08-27 15:43 | PC.NURSE ---
Checked patient's brief, was not soiled. Observed patient's respirations and monitored vitals. Patient continues to rest.
== END 2021-08-27 17:15 | disposition home or self-care (01) ==
PROVIDERS: Emergency Provider Emergency Medicine; PCP Nurse Practitioner Family
DX: T74.21XA Adult sexual abuse, confirmed, initial encounter (principal); Y92.099 Unspecified place in other non-institutional residence as the place of occurrence of the external cause
CPT/HCPCS: 87210; 99284

== ENCOUNTER → 2021-09-04 07:59 | Outpatient (ROUT) | payer MEDICARE, MEDICAID, SELFPAY ==
[2018-11-15 17:00] VITALS: BMI 25.0
[2021-09-04 09:14] LABS: Add Manual Diff / Slide Review NO; Basophils Absolute Auto 100 /uL (0-100); Basophils Percent Auto 0.8 % (0-2); Eosinophils Absolute Auto 100 /uL (0-450); Eosinophils Percent Auto 1.6 % (2-4); Hematocrit 37.4 % (36-46); Hemoglobin 12.5 g/dL (12.0-16.0); Lymphocytes Absolute Auto 1900 /uL (1100-4500); Lymphocytes Percent Auto 24.9 % (25-40); Mean Corpuscular HGB Conc 33.5 % (30-36); Mean Corpuscular Hemoglobin 29.8 PG (26-34); Monocytes Absolute Auto 600 /uL (0-900); Monocytes Percent Auto 7.4 % (3-14); Neutrophils Absolute Auto 5000 /uL (1500-7000); Neutrophils Percent Auto 65.3 % (50-75); Platelet Count 346 X10^3/uL (150-400); White Blood Cell Count 7.7 X10^3/uL (4.5-11.0)
[2021-09-04 09:30] LABS: BUN Creatinine Ratio 28.3 (6-22); Blood Urea Nitrogen 13 mg/dL (7-17); Calcium 9.3 mg/dL (8.4-10.2); Carbon Dioxide 28 mmol/L (22-32); Chloride 108 mmol/L (98-107); Estimated Glomerular Filt Rate > 60.0 mL/min (>60); Glucose 81 mg/dL (80-110); HEMOLYSIS < 15 (0-50); Sodium 141 mmol/L (137-145)
== END ==
PROVIDERS: PCP Nurse Practitioner Family; Visit Provider Internal Medicine
DX: E86.0 Dehydration (principal); R33.9 Retention of urine, unspecified
CPT/HCPCS: 36415; 80048; 85025

== ENCOUNTER → 2021-12-05 19:41 | Outpatient (ROUT) | payer MEDICARE, MEDICAID, SELFPAY ==
[2018-11-15 17:00] VITALS: BMI 25.0
[2021-12-08 09:07] LABS: COVID19 Sendout Not Detected (Not Detect)
== END ==
PROVIDERS: PCP Nurse Practitioner Family; Visit Provider Internal Medicine
DX: Z20.822 Contact with and (suspected) exposure to COVID-19 (principal)
CPT/HCPCS: 87635

== ENCOUNTER 2021-12-15 12:17 | Emergency (ER) | payer MEDICARE, MEDICAID, SELFPAY ==
[2018-11-15 17:00] VITALS: BMI 25.0
[2021-12-15] VITALS (9 sets, daily range): BP systolic 80–107; BP diastolic 48–68; PULSE 69–102; RESP 17–24; TEMP 36.9; O2SAT 95–99
--- NOTE | 2021-12-15 12:32 | PC.NURSE ---
Dr. Ugarte at bedside and aware of blood pressure, pt has normal saline continued from EMS running at bolus rate.
--- NOTE | 2021-12-15 12:35 | DI.RAD.S_ITS ---
PROCEDURE: XR CHEST 1V INDICATIONS: + COVID, low bp TECHNIQUE: One view of the chest was acquired. COMPARISON: [facility], CR, XR CHEST 1V, 11/15/2018, 10:03. FINDINGS: Surgical changes and devices: None. Lungs and pleura: Lungs are clear. No pleural effusions or pneumothorax. Mediastinum: The cardiac contours are within normal limits. The aorta demonstrates calcification and tortuosity. Bones and chest wall: Age-appropriate bony degenerative changes are seen. No suspicious bony lesions. Overlying soft tissues appear unremarkable. IMPRESSION: No focal infiltrates are seen. If there is clinical concern for a developing pulmonary process, a short-term followup chest series (with PA and lateral views, performed in deep inspiration) is suggested for further evaluation. Dictated by: Shahram Gaines M.D. on 12/15/2021 at 12:18 Approved by: Shahram Gaines M.D. on 12/15/2021 at 12:19
--- NOTE | 2021-12-15 12:36 | ED.GENADULT ---
HPI - General Adult General Chief complaint: Weakness Stated complaint: Lethargic, covid pos Time Seen by Provider: 12/15/21 12:19 Source: EMS and old records reviewed Mode of arrival: EMS Limitations: altered mental status (dementia, baseline) History of Present Illness HPI narrative: This is a 71-year-old female with known dementia, prior traumatic brain injury and is nonverbal secondary her prior injuries. She currently lives at [facility]. She is brought in today COVID positive at her facility with low blood pressure. Patient is nonverbal. She is alert I have seen her in the past and her level of alertness is typical. Patient is not uncooperative but she does not wish to move her arms. No reported fevers. Patient does not answer any questions about ROS. Her other vital signs EN route were otherwise including her oxygenation. She is on levothyroxine, vitamin-D, stool softeners and Tylenol as needed. Related Data Home Medications Medication Instructions Recorded Confirmed cholecalciferol (vitamin D3) 50 2,000 unit PO DAILY 11/15/18 08/26/19 mcg (2,000 unit) tablet (Vitamin D3) levothyroxine 112 mcg tablet 112 mcg PO DAILY 11/15/18 08/26/19 melatonin 3 mg tablet 6 mg PO BEDTIME 11/15/18 08/26/19 omega 4-lwa-oqj-fish oil 1,000 mg 1,000 mg PO DAILY 11/15/18 08/26/19 (120 mg-180 mg) capsule (Fish Oil) docusate sodium 100 mg capsule 200 mg PO BID 06/06/19 08/26/19 loperamide 2 mg capsule 2 mg PO PRN PRN MDD 8 caps 06/06/19 08/26/19 bisacodyl 10 mg rectal suppository 10 mg [place] DAILY PRN 08/26/19 08/26/19 Previous Rx's Medication Instructions Recorded acetaminophen 325 mg tablet 650 mg PO Q4H PRN #90 tab 09/15/18 ibuprofen 600 mg tablet 600 mg PO Q6HR PRN #30 tab 11/19/18 sennosides 8.6 mg tablet (senna) 17.2 mg PO BEDTIME #30 tab 11/19/18 vitamin B complex (B 1 tab PO DAILY #31 tab 02/16/19 Complex-Vitamin B12) Allergies Allergy/AdvReac Type Severity Reaction Status Date / Time Penicillins [PENICILLINS] Allergy Severe hives, Verified 08/26/21 23:00 vomiting Sulfa (Sulfonamide Allergy Intermediate Hives Verified 08/26/21 23:00 Antibiotics) [SULFA (SULFONAMIDE ANTIBIOTICS)] Review of Systems Review of Systems ROS Unobtainable: Unobtainable due to mental status/LOC Patient History Medical History (Updated 12/15/21 @ 14:22 by Sugey Ugarte DO) Alzheimer disease Hypothyroid TBI (traumatic brain injury) Surgical History Status post arthroscopy Family History Mother No problems noted. Social History household members: caregiver lives independently: No ([facility]) Smoking Status: Unknown if ever smoked Smoking Status: Unknown if ever smoked alcohol intake frequency: other Substance Use Type: unknown Exam Narrative Exam Narrative: GEN: Thin but well-nourished elderly female, alert, patient appears to be in mild distress. HEENT: Atraumatic, pupils are equal round reactive to light, extraocular movements are intact, nares are clear. HEART: Regular rate and rhythm without murmur, clicks, rubs. LUNGS:Lungs clear to auscultation, no wheezes, rales, crackles, chest moves symmetrically, no tachypnea or accessory muscle use. ABD:bowel sounds normal, nondistended, soft, non-tender, no guarding, rebound, rigidity, no masses noted, no hepatosplenomegaly :No CVA tenderness MSCL: Non-tender, patient actively resists movement with her upper extremities and hold them close to her chest. She seems to have full strength in bilateral upper extremities and equal. NEURO:CN 2-12 intact, sensation normal Initial Vital Signs Initial Vital Signs: Vital Signs Pulse Rate 74 12/15/21 12:30 Respiratory Rate 18 12/15/21 12:30 Blood Pressure 87/54 L 12/15/21 12:30 Pulse Oximetry 99 12/15/21 12:30 Course Orders Ordered: ED Orders 12/15/21 12:25 Complete Blood Count AUTO DIFF Stat Comprehensive Metabolic Panel Stat D Dimer Stat Lactate (Lactic Acid) Stat NT-proBNP (BNP-Adult 18+) Stat Procalcitonin Stat TSH w/ Reflex to FT4 Stat Troponin & CK Cardiac Panel Stat 12/15/21 12:35 XR chest 1V Stat COVID19 -Nasal swab/Pre-Proc Stat 12/15/21 12:57 EKG-12 Lead Stat Vital Signs Vital signs: Vital Signs - 8 hr 12/15/21 12:30 12/15/21 12:31 12/15/21 13:25 Temperature 98.5 F Pulse Rate 74 74 76 Respiratory Rate 18 18 20 Blood Pressure 87/54 L 101/68 Pulse Oximetry 99 95 97 12/15/21 13:30 12/15/21 14:00 12/15/21 14:15 Temperature Pulse Rate 102 H 73 73 Respiratory Rate 18 20 17 Blood Pressure 81/52 L 80/48 L 81/52 L Pulse Oximetry 96 97 97 12/15/21 14:30 12/15/21 14:45 12/15/21 15:00 Temperature Pulse Rate 80 69 69 Respiratory Rate 21 21 24 Blood Pressure 105/57 L 92/51 L 107/49 L Pulse Oximetry 97 97 98 Medical Decision Making Lab Data Result diagrams: 12/15/21 12:25 12/15/21 12:25 Labs: Lab Results 12/15/21 12/15/21 12/15/21 Range/Units 12:25 12:25 12:25 WBC 7.2 (4.5-11.0) X10^3/uL RBC 4.33 (4.0-5.2) X10^6/uL Hgb 12.9 (12.0-16.0) g/dL Hct 38.2 (36-46) % MCV 88.2 (80-100) fL MCH 29.7 (26-34) PG MCHC 33.6 (30-36) % RDW 12.9 (11.6-14.8) % Plt Count 311 (150-400) X10^3/uL Neut % (Auto) 74.6 (50-75) % Lymph % (Auto) 12.9 L (25-40) % [place] % (Auto) 11.9 (3-14) % Eos % (Auto) 0.1 L (2-4) % Baso % (Auto) 0.5 (0-2) % Neut # (Auto) 5400 (3510-5759) /uL Lymph # (Auto) 900 L (4680-0280) /uL [place] # (Auto) 900 (0-900) /uL Eos # (Auto) 0 (0-450) /uL Baso # (Auto) 0 (0-100) /uL D-Dimer 299 H (<230) ng/mL Sodium 140 (137-145) mmol/L Potassium 4.1 (3.4-5.1) mmol/L Chloride 109 H (98-107) mmol/L Carbon Dioxide 26 (22-32) mmol/L BUN 13 (7-17) mg/dL Creatinine 0.57 (0.52-1.04) mg/dL Estimated GFR > 60.0 (>60) mL/min BUN/Creatinine Ratio 22.8 H (6-22) Glucose 95 (80-110) mg/dL Lactate (0.7-2.1) mmol/L Calcium 9.8 (8.4-10.2) mg/dL Total Bilirubin 0.4 (0.2-1.3) mg/dL AST 31 (14-36) IU/L ALT 14 (<35) IU/L Alkaline Phosphatase 69 (38-126) U/L Total Creatine Kinase 107 (30-135) U/L CK-MB (CK-2) 1.09 (<2.37) ng/mL CK-MB (CK-2) Rel Index 1.0 L (1.5-5.0) % Troponin I < 0.012 (0.01-0.034) ng/mL NT-Pro-B Natriuret Pep (<125) pg/mL Total Protein 7.3 (6.3-8.2) g/dL Albumin 3.9 (3.5-5.0) g/dL Globulin 3.4 (1.7-4.1) g/dL Albumin/Globulin Ratio 1.1 (1.0-2.8) Procalcitonin 0.08 (<0.5) ng/mL TSH (0.47-4.68) uIU/mL SARS-CoV-2 (PCR) (Negative) 12/15/21 12/15/21 12/15/21 Range/Units 12:25 12:25 12:25 WBC (4.5-11.0) X10^3/uL RBC (4.0-5.2) X10^6/uL Hgb (12.0-16.0) g/dL Hct (36-46) % MCV (80-100) fL MCH (26-34) PG MCHC (30-36) % RDW (11.6-14.8) % Plt Count (150-400) X10^3/uL Neut % (Auto) (50-75) % Lymph % (Auto) (25-40) % [place] % (Auto) (3-14) % Eos % (Auto) (2-4) % Baso % (Auto) (0-2) % Neut # (Auto) (1709-0520) /uL Lymph # (Auto) (9771-6621) /uL [place] # (Auto) (0-900) /uL Eos # (Auto) (0-450) /uL Baso # (Auto) (0-100) /uL D-Dimer (<230) ng/mL Sodium (137-145) mmol/L Potassium (3.4-5.1) mmol/L Chloride (98-107) mmol/L Carbon Dioxide (22-32) mmol/L BUN (7-17) mg/dL Creatinine (0.52-1.04) mg/dL Estimated GFR (>60) mL/min BUN/Creatinine Ratio (6-22) Glucose (80-110) mg/dL Lactate 1.3 (0.7-2.1) mmol/L Calcium (8.4-10.2) mg/dL Total Bilirubin (0.2-1.3) mg/dL AST (14-36) IU/L ALT (<35) IU/L Alkaline Phosphatase (38-126) U/L Total Creatine Kinase (30-135) U/L CK-MB (CK-2) (<2.37) ng/mL CK-MB (CK-2) Rel Index (1.5-5.0) % Troponin I (0.01-0.034) ng/mL NT-Pro-B Natriuret Pep 266 H (<125) pg/mL Total Protein (6.3-8.2) g/dL Albumin (3.5-5.0) g/dL Globulin (1.7-4.1) g/dL Albumin/Globulin Ratio (1.0-2.8) Procalcitonin (<0.5) ng/mL TSH 2.43 (0.47-4.68) uIU/mL SARS-CoV-2 (PCR) (Negative) 12/15/21 Range/Units 12:35 WBC (4.5-11.0) X10^3/uL RBC (4.0-5.2) X10^6/uL Hgb (12.0-16.0) g/dL Hct (36-46) % MCV (80-100) fL MCH (26-34) PG MCHC (30-36) % RDW (11.6-14.8) % Plt Count (150-400) X10^3/uL Neut % (Auto) (50-75) % Lymph % (Auto) (25-40) % [place] % (Auto) (3-14) % Eos % (Auto) (2-4) % Baso % (Auto) (0-2) % Neut # (Auto) (6961-3554) /uL Lymph # (Auto) (9938-1517) /uL [place] # (Auto) (0-900) /uL Eos # (Auto) (0-450) /uL Baso # (Auto) (0-100) /uL D-Dimer (<230) ng/mL Sodium (137-145) mmol/L Potassium (3.4-5.1) mmol/L Chloride (98-107) mmol/L Carbon Dioxide (22-32) mmol/L BUN (7-17) mg/dL Creatinine (0.52-1.04) mg/dL Estimated GFR (>60) mL/min BUN/Creatinine Ratio (6-22) Glucose (80-110) mg/dL Lactate (0.7-2.1) mmol/L Calcium (8.4-10.2) mg/dL Total Bilirubin (0.2-1.3) mg/dL AST (14-36) IU/L ALT (<35) IU/L Alkaline Phosphatase (38-126) U/L Total Creatine Kinase (30-135) U/L CK-MB (CK-2) (<2.37) ng/mL CK-MB (CK-2) Rel Index (1.5-5.0) % Troponin I (0.01-0.034) ng/mL NT-Pro-B Natriuret Pep (<125) pg/mL Total Protein (6.3-8.2) g/dL Albumin (3.5-5.0) g/dL Globulin (1.7-4.1) g/dL Albumin/Globulin Ratio (1.0-2.8) Procalcitonin (<0.5) ng/mL TSH (0.47-4.68) uIU/mL SARS-CoV-2 (PCR) Positive H (Negative) Imaging Data Chest x-ray: Radiologist's Impression: [address] [address] XRay Report Signed Patient: Gillian Law MR#: [id number] : 1950 Acct:[id number] Age/Sex: 71 / F Date of Service: 12/15/21 Loc: ED Accession Number: [id number] ?? Procedure: XR chest 1V Ordering Provider: Sugey Ugarte D.O. PROCEDURE:? XR CHEST 1V ? INDICATIONS:? + COVID, low bp ? TECHNIQUE:? One view of the chest was acquired.? ? COMPARISON:? [facility], CR, XR CHEST 1V, 11/15/2018, 10:03. ? FINDINGS:? ? Surgical changes and devices:? None.? ? Lungs and pleura:? Lungs are clear.? No pleural effusions or pneumothorax.? ? Mediastinum:? The cardiac contours are within normal limits. The aorta demonstrates calcification and tortuosity. ? Bones and chest wall:? Age-appropriate bony degenerative changes are seen. ? No suspicious bony lesions.? Overlying soft tissues appear unremarkable.? IMPRESSION:? No focal infiltrates are seen. ? If there is clinical concern for a developing pulmonary process, a short-term followup chest series (with PA and lateral views, performed in deep inspiration) is suggested for further evaluation. ? ? ? Dictated by: Shahram Gaines M.D. on 12/15/2021 at 12:18 ? ? Approved by: Shahram Gaines M.D. on 12/15/2021 at 12:19 ECG Data Attestation: I personally reviewed and interpreted this ECG as follows: Interpretation: Sinus rhythm rate of 74 [place] 158 QRS 68, QTC of 424. No acute ST elevation depression noted. MDM Narrative Medical decision making narrative: This is a 71-year-old female sent from her care facility being COVID positive with low blood pressure. Patient does have blood pressure in the 80 systolic range regularly on review of prior visits in the past year she has typically been 80 systolic. Patient seems to be her normal baseline. Her labs do not show any anemia, D-dimer is elevated to 99 but age adjusted cutoff would be 365. Her BNP is 266 with a troponin of less than 0.012. Chest x-ray is negative. Patient's COVID swab is positive. TSH is appropriate. Patient appears appropriate to return to her facility. Discharge Plan Departure Patient Disposition: Home Clinical Impression: COVID-19 virus infection Instructions: DI for COVID-19 (Suspected or Confirmed ) Activity Restrictions/Additional Instructions: *You have been diagnosed with COVID infection If you wish you may obtain a pulse oximeter for use at home to monitor. Please return to the ER if your pulse oximeter shows an O2 saturation less than 90%. *What to do: * per recommendations from the CDC and the [facility] Department of Health * stay home except to get medical care. Restrict activities outside your home, except for getting medical care. Do not go to work, school, or public areas. Avoid using public transportation, ride sharing, or taxis. * separate yourself from other people in your home. * call ahead before visiting your doctor * Wear a face mask * Cover your coughs and sneezes * Clean your hands often * Avoid sharing household items * Clean all high-touch services every day * Monitor your symptoms and seek prompt medical attention if your illness is worsening, particularly with difficulty in breathing. Prescriptions: No Action acetaminophen 325 mg tablet 650 mg PO Q4H PRN (Reason: pain) Qty: 90 0RF Rx Instructions: Take two tablets up to every four hours as needed for pain. vitamin B complex [B Complex-Vitamin B12] tablet 1 tab PO DAILY Qty: 31 3RF levothyroxine 112 mcg Tablet 112 mcg PO DAILY 0RF omega 6-nxo-ods-fish oil [Fish Oil] 1,000 mg (120 mg-180 mg) Capsule 1,000 mg PO DAILY 0RF melatonin 3 mg tablet 6 mg PO BEDTIME 0RF cholecalciferol (vitamin D3) [Vitamin D3] 2,000 unit tablet 2,000 unit PO DAILY 0RF sennosides [senna] 8.6 mg Tablet 17.2 mg PO BEDTIME Qty: 30 0RF ibuprofen 600 mg Tablet 600 mg PO Q6HR PRN (Reason: As Needed For Fever/Mild Pain) Qty: 30 0RF loperamide 2 mg Capsule 2 mg PO PRN MDD 8 caps PRN (Reason: loose stool) 0RF docusate sodium 100 mg capsule 200 mg PO BID 0RF bisacodyl 10 mg Suppository 10 mg [place] DAILY PRN (Reason: Constipation) 0RF Referrals: Shelia Petersen ARNP [Primary Care Provider] -
[2021-12-15 12:54] LABS: COVID19 -Nasal RAPID POSITIVE (Negative)
--- NOTE | 2021-12-15 13:08 | PC.NURSE ---
Called [facility] concerning LAURA, RN line states will fax form over shortly.
[2021-12-15 13:44] LABS: Add Manual Diff / Slide Review NO; Basophils Absolute Auto 0 /uL (0-100); Basophils Percent Auto 0.5 % (0-2); Eosinophils Absolute Auto 0 /uL (0-450); Eosinophils Percent Auto 0.1 % (2-4); Hematocrit 38.2 % (36-46); Hemoglobin 12.9 g/dL (12.0-16.0); Lymphocytes Absolute Auto 900 /uL (1100-4500); Lymphocytes Percent Auto 12.9 % (25-40); Mean Corpuscular HGB Conc 33.6 % (30-36); Mean Corpuscular Hemoglobin 29.7 PG (26-34); Mean Corpuscular Volume 88.2 fL (80-100); Monocytes Absolute Auto 900 /uL (0-900); Monocytes Percent Auto 11.9 % (3-14); Neutrophils Absolute Auto 5400 /uL (1500-7000); Neutrophils Percent Auto 74.6 % (50-75); Platelet Count 311 X10^3/uL (150-400); Red Blood Cell Count 4.33 X10^6/uL (4.0-5.2); Red Cell Distribution Width 12.9 % (11.6-14.8); White Blood Cell Count 7.2 X10^3/uL (4.5-11.0)
[2021-12-15 13:55] LABS: D Dimer 299 ng/mL (<230)
[2021-12-15 13:56] LABS: Alanine Aminotransferase 14 IU/L (<35); Albumin 3.9 g/dL (3.5-5.0); Albumin Globulin Ratio 1.1 (1.0-2.8); Alkaline Phosphatase 69 U/L (38-126); Aspartate Aminotransferase 31 IU/L (14-36); BUN Creatinine Ratio 22.8 (6-22); Bilirubin Total 0.4 mg/dL (0.2-1.3); Blood Urea Nitrogen 13 mg/dL (7-17); Calcium 9.8 mg/dL (8.4-10.2); Carbon Dioxide 26 mmol/L (22-32); Chloride 109 mmol/L (98-107); Creatine Kinase 107 U/L (30-135); Estimated Glomerular Filt Rate > 60.0 mL/min (>60); Globulin 3.4 g/dL (1.7-4.1); Glucose 95 mg/dL (80-110); Potassium 4.1 mmol/L (3.4-5.1); Sodium 140 mmol/L (137-145); Total Protein 7.3 g/dL (6.3-8.2)
[2021-12-15 13:57] LABS: Lactate (Lactic Acid) 1.3 mmol/L (0.7-2.1)
[2021-12-15 14:06] LABS: NT-proBNP (BNP-Adult 18+) 266 pg/mL (<125)
[2021-12-15 14:09] LABS: Troponin I < 0.012 ng/mL (0.01-0.034)
[2021-12-15 14:12] LABS: Creatine Kinase MB 1.09 ng/mL (<2.37); HEMOLYSIS 29 (0-50)
[2021-12-15 14:13] LABS: Procalcitonin 0.08 ng/mL (<0.5)
[2021-12-15 14:29] LABS: TSH w/ Reflex to FT4 2.43 uIU/mL (0.47-4.68)
--- NOTE | 2021-12-15 14:31 | PC.NURSE ---
Pt received 1000ml NS bolus from EMS NS bag.
--- NOTE | 2021-12-15 14:59 | PC.NURSE ---
Report called to RN line at [facility], updated on pt anticipated transport time.
== END 2021-12-15 15:21 | disposition home or self-care (01) ==
PROVIDERS: Emergency Provider Emergency Medicine; PCP Nurse Practitioner Family
DX: U07.1 COVID-19 (principal); R03.1 Nonspecific low blood-pressure reading
CPT/HCPCS: 36415; 71045; 80053; 82550; 82553; 83605; 83880; 84145; 84443; 84484; 85025; 85379; 87635; 93005; 93010; 99283; 99284; C9803